=== PATIENT | female | born 1955 | race Caucasian/White ===

== ENCOUNTER 2023-06-09 13:45 | Outpatient (RCR) | payer MEDICARE, OTHER, SELFPAY | END 2023-06-09 23:59 | disposition home or self-care (01) | LOC: ROT 13:45 | PROVIDERS: ATTENDING PHYSICIAN Physical Medicine & Rehabilitation; FAMILY PHYSICIAN Nurse Practitioner | DX: I69.898 Other sequelae of other cerebrovascular disease (principal); R26.2 Difficulty in walking, not elsewhere classified; R53.83 Other fatigue; I69.354 Hemiplegia and hemiparesis following cerebral infarction affecting left non-dominant side | CPT/HCPCS: 97112; 97116; 97530; 97535 ==

== ENCOUNTER 2023-06-23 12:30 | Outpatient (RCR) | payer MEDICARE, OTHER, SELFPAY | END 2023-06-23 23:59 | disposition home or self-care (01) | LOC: ROT 12:30 | PROVIDERS: ATTENDING PHYSICIAN Physical Medicine & Rehabilitation; FAMILY PHYSICIAN Nurse Practitioner | DX: I63.9 Cerebral infarction, unspecified (principal); Z73.6 Limitation of activities due to disability | CPT/HCPCS: 97116; 97530 ==

== ENCOUNTER 2023-07-28 12:59 | Outpatient (RCR) | payer MEDICARE, OTHER, SELFPAY | END 2023-07-28 23:59 | disposition home or self-care (01) | LOC: ROT 12:59 | PROVIDERS: ATTENDING PHYSICIAN Physical Medicine & Rehabilitation; FAMILY PHYSICIAN Nurse Practitioner | DX: I69.354 Hemiplegia and hemiparesis following cerebral infarction affecting left non-dominant side (principal); R53.83 Other fatigue; Z73.6 Limitation of activities due to disability; R26.2 Difficulty in walking, not elsewhere classified | CPT/HCPCS: 97112; 97116 ==

== ENCOUNTER 2023-08-19 12:49 | Outpatient (RCR) | payer MEDICARE, OTHER, SELFPAY | END 2023-08-19 23:59 | disposition home or self-care (01) | LOC: ROT 12:49 | PROVIDERS: ATTENDING PHYSICIAN Physical Medicine & Rehabilitation; FAMILY PHYSICIAN Nurse Practitioner | DX: I69.354 Hemiplegia and hemiparesis following cerebral infarction affecting left non-dominant side (principal); R53.83 Other fatigue; G81.14 Spastic hemiplegia affecting left nondominant side; R26.2 Difficulty in walking, not elsewhere classified; Z73.6 Limitation of activities due to disability; Z85.3 Personal history of malignant neoplasm of breast; Z90.13 Acquired absence of bilateral breasts and nipples | CPT/HCPCS: 97110; 97116; 97530 ==

== ENCOUNTER 2023-09-30 12:37 | Outpatient (RCR) | payer MEDICARE, OTHER, SELFPAY | END 2023-09-30 23:59 | disposition home or self-care (01) | LOC: ROT 12:37 | PROVIDERS: ATTENDING PHYSICIAN Physical Medicine & Rehabilitation; FAMILY PHYSICIAN Nurse Practitioner | DX: I69.354 Hemiplegia and hemiparesis following cerebral infarction affecting left non-dominant side (principal); Z73.6 Limitation of activities due to disability; R26.89 Other abnormalities of gait and mobility; Z85.3 Personal history of malignant neoplasm of breast | CPT/HCPCS: 97110; 97116; 97530 ==

== ENCOUNTER 2023-11-11 13:05 | Outpatient (RCR) | payer MEDICARE, OTHER, SELFPAY | END 2023-11-11 23:59 | disposition home or self-care (01) | LOC: ROT 13:05 | PROVIDERS: ATTENDING PHYSICIAN Physical Medicine & Rehabilitation; FAMILY PHYSICIAN Nurse Practitioner | DX: I69.352 Hemiplegia and hemiparesis following cerebral infarction affecting left dominant side (principal); R53.83 Other fatigue; Z73.6 Limitation of activities due to disability | CPT/HCPCS: 97112; 97116 ==

== ENCOUNTER 2023-11-24 13:07 | Outpatient (RCR) | payer MEDICARE, OTHER, SELFPAY | END 2023-11-24 23:59 | disposition home or self-care (01) | LOC: ROT 13:07 | PROVIDERS: ATTENDING PHYSICIAN Physical Medicine & Rehabilitation; FAMILY PHYSICIAN Nurse Practitioner | DX: I69.354 Hemiplegia and hemiparesis following cerebral infarction affecting left non-dominant side (principal); Z73.6 Limitation of activities due to disability; R53.83 Other fatigue; R26.2 Difficulty in walking, not elsewhere classified; R26.89 Other abnormalities of gait and mobility; Z85.3 Personal history of malignant neoplasm of breast | CPT/HCPCS: 97116; 97530 ==

== ENCOUNTER 2023-12-15 15:29 | Emergency (ER) | payer MEDICARE, OTHER, SELFPAY ==
[2023-12-15 15:35] VITALS: BP 147/95
[2023-12-15 16:06] LABS: % Basophils 0.7 % (0-2); % Eosinophils 1.5 % (0-6); % Immature Granulocytes 0.3 % (0-0.5); % Monocytes 9.5 % (1.7-9.3); Absolute Basophils 0.1 10^3/uL (0-0.2); Absolute Eosinophils 0.1 10^3/uL (0-0.7); Absolute Lymphocytes 3.1 10^3/uL (1.2-3.4); Absolute Monocytes 0.8 10^3/uL (0.1-0.6); Absolute Neutrophils 4.7 10^3/uL (1.4-6.5); Hematocrit 37.6 % (37.0-47.0); Hemoglobin 12.9 g/dL (12.0-16.0); Mean Corp Hgb Conc. 34.3 g/dL (33.0-37.0); Mean Corpuscular Hgb 30.8 pg (27.0-31.0); Mean Corpuscular Volume 89.7 fL (81.0-99.0); Mean Platelet Volume 10.4 fL (7.4-10.4); Nucleated Red Blood Cells % 0 %; Platelet Count 247 10^3/uL (130-400); Red Blood Cell Count 4.19 10^6/uL (4.20-5.40); Red Cell Dist. Width 12.4 % (11.5-14.5); White Blood Cell Count 8.9 10^3/uL (4.8-10.8)
[2023-12-15 16:18] LABS: ALT (SGPT) 28 U/L (0-35); AST (SGOT) 29 U/L (14-36); Albumin 4.4 g/dl (3.5-5.0); Alkaline Phosphatase 71 U/L (38-126); Blood Urea Nitrogen 16 mg/dl (7-17); Calcium 10.1 mg/dl (8.4-10.2); Carbon Dioxide 28 mmol/L (22-30); Chloride 100 mmol/L (98-107); Glucose 86 mg/dl (70-99); Potassium 4.6 mmol/L (3.5-5.1); Sodium 136 mmol/L (135-145); Total Bilirubin 0.3 mg/dl (0.2-1.3); Total Protein 6.9 g/dl (6.3-8.2); eGFR > 60.00
[2023-12-15 16:55] LABS: Urine Albumin Trace (Neg - Trace); Urine Bilirubin Negative (Negative); Urine Character Clear (Clear); Urine Color Yellow; Urine Glucose Negative (Negative); Urine Ketone Negative (Negative); Urine Leukocyte 1+ (Negative); Urine Nitrite Negative (Negative); Urine Occult Blood 2+ (Negative); Urine Urobilinogen Negative (Neg - 1+); Urine pH 6.5 (5.0-9.0)
[2023-12-15 17:46] LABS: Urine Squamous Cell >30 /LPF (Few)
[2023-12-15 17:47] LABS: Urine Bacteria Few (Negative)
[2023-12-15 17:54] VITALS: BP 124/59
--- NOTE | 2023-12-15 17:58 | ED.GENMED ---
History of Present Illness
General
Chief Complaint: Dizziness
Time Seen by Provider: 12/15/23 17:43
History of Present Illness
History of Present Illness:
Patient presents to the emergency department with episodes of dizziness. States they have been ongoing since this weekend. States they only occur when she turns her head certain directions. Complains of some vertigo and some lightheadedness.
States she has a history of vertigo. Denies any new pain. Has baseline left upper and left lower extremity hemiparesis from prior stroke. No new weakness.
Past History
Past History
ED Past Medical History: CVA (with left sided weakness); Negative Asthma, HTN, Hypercholesterolemia or NIDDM
ED Past Surgical History: Cholecystectomy
Social History
Tobacco: Former smoker
Alcohol: None
Personal:
Living: with family
Phy Exam
Physical Exam
Physical Exam:
GENERAL APPEARANCE: NAD, laying in stretcher, comfortable
EYES lids/conjunctiva normal
EARS/NOSE/THROAT Mucous membranes moist, uvula midline without oral pharyngeal erythema, exudate or swelling, leoncio hallpike normal
HEAD/NECK normocephalic atraumatic, neck is supple.
RESPIRATORY respiratory effort normal, speaks in full sentences, no accessory muscle use. Lungs clear to auscultation without rhonchi, wheezes, rales
CARDIAC Regular rate and rhythm, no edema.
ABDOMINAL Soft, ND/NT. No pulsatile masses on exam, rebound tenderness, Alves sign or pain over Mcburney's point.
MUSCLES/EXTREMITIES No abnormal range of motion, no swelling.
SKIN Warm, pink and dry. No rashes
NEUROLOGICAL Speech is clear and appropriate. Normal level of consciousness. CN2-12 intact, no nystagmus, baseline LLE/LUE paralysis with diminished sensation, 5/5 in RLE/RUE with normal sensation, no dysmetria or ataxia
PSYCH Normal mood and affect. Judgement/competence is appropriate
Course
Orders/Labs/Results
Orders:
Orders
12/15/23 15:39
ECG [Electrocardiogram (*1)] Urgent
Reason for Study: Vertigo / Dizzy
EKG- Treatment ONCE
12/15/23 15:52
Complete Blood Count/With Diff Urgent
Comprehensive Metabolic Panel Urgent
12/15/23 16:43
Urinalysis Reflex To Culture Urgent
Date Specimen was Collected: 12/15/23
Time Specimen was Collected: 16:42
Urine Microscopic Reflex Cult Urgent
Urine Culture Urgent
RAYMUNDO Source: U
Specimen Description:
Date Specimen was Collected: 12/15/23
Time Specimen was Collected: 16:42
12/15/23 17:57
0.9% Sodium Chloride 500 ml [Nss] 500 ml IV BOLUS
12/15/23 18:06
Meclizine [Antivert] 12.5 mg PO NOW STA
Abnormal Lab Results
12/15/23 12/15/23
15:52 16:43
RBC 4.19 L 10^6/uL
(4.20-5.40)
Absolute Monos (auto) 0.8 H 10^3/uL
(0.1-0.6)
Monocytes % 9.5 H %
(1.7-9.3)
Ur Occult Blood Reflex 2+ A
(Negative)
Leukocyte Esterase Rfl 1+ A
(Negative)
Urine RBC 3-6 A /HPF
(0-2)
Urine Bacteria (Reflex) Few A
(Negative)
12/15/23 15:52
12/15/23 15:52
Vital Signs
Initial and Last Documented VS:
Initial Vital Signs
Temp Pulse Resp BP Pulse Ox
98.8 F 80 20 147/95 96
12/15/23 15:35 12/15/23 15:35 12/15/23 15:35 12/15/23 15:35 12/15/23 15:35
Last Documented Vital Signs
Temp Pulse Resp BP Pulse Ox
98.8 F 77 14 144/73 97
12/15/23 15:35 12/15/23 19:15 12/15/23 19:15 12/15/23 19:00 12/15/23 18:15
*Critical Care Note
Total Time (30-74mins, 75-104mins- exclusive of procedures): Not Applicable
ED Attending Note
ED Attending Note
ED Attending Note:
Patient with positional vertigo. Improved with meclizine. No new neurologic deficits or symptoms consistent with new CVA. Will refer to ENT for outpatient management. urine noted, contaminated sample, no urinary sxs
-
Portions of this chart may have been created with voice recognition software.� Occasional wrong word or��sound alike� substitutions may have occurred due to the inherent limitations of voice recognition software.
Discharge Plan
Departure
Patient Disposition: Home (Routine Discharge)
Date of Disposition: 12/15/23
Time of Disposition: 19:18
Patient with high blood pressure during this ER visit?: Yes
Discharge Problem:
Dizziness
Instructions: Vertigo (a Type of Dizziness) (DC)
Prescriptions:
New
meclizine 25 mg tablet
25 mg PO DAILY PRN (Reason: dizziness) Qty: 14 0RF
No Action
acetaminophen [Tylenol Extra Strength] 500 MG tablet
500 mg PO TID
levetiracetam 500 MG tablet
500 mg PO BID
atorvastatin 80 MG tablet
80 mg PO QPM
melatonin 3 MG tablet
3 mg PO HS
calcium carbonate [Calcium 600] 600 mg calcium (1,500 mg) Tablet
600 mg PO BID@1200,1900 Qty: 0
baclofen 10 MG tablet
10 mg PO TID
celecoxib 100 MG capsule
100 mg PO BID
dicyclomine 10 MG capsule
10 mg PO DAILY
loratadine 10 MG tablet
10 mg PO QPM
escitalopram oxalate 20 MG tablet
20 mg PO DAILY
cholecalciferol (vitamin D3) 1,000 UNITS tablet
2,000 units PO NOON
clopidogrel [Plavix] 75 mg Tablet
75 mg PO DAILY
lisinopril 10 mg Tablet
10 mg PO DAILY
gabapentin 300 mg Capsule
300 mg PO HS
estradiol [Estrace] 0.01 % (0.1 mg/gram) Cream
1 appful VAGINAL MOTH
fluticasone propionate [Flonase] 50 mcg/actuation [place],Suspension
2 spray INTRANASAL NOON
Visbiome 112.5 billion cell Capsule
1 cap PO DAILY
cranberry extract [Ellura] 200 mg Capsule
200 mg PO QPM
mirabegron [Myrbetriq] 50 mg Tablet Extended Release 24 Hr
50 mg PO HS
nifedipine 30 MG tablet extended release
60 mg PO HS
Referrals:
Leighton Shea MD [Emergency Provider] -
UNKNOWN - PT DOES,NOT KNOW [Family Provider] -
Jamia Reyes MD [Active] - Follow up in 10 days
Interventions
Interventions:
*Risk Screen - Suicide Last Done: 12/15/23 18:06
*General Assessment Last Done: 12/15/23 18:06
*Neglect/Abuse Screening Last Done: 12/15/23 18:06
*ED COVID-19 Vaccine History Last Done: 12/15/23 18:06
ED- Neurological Assessment Last Done: 12/15/23 18:06
ED Swallowing Screen Last Done: 12/15/23 18:15
Discharge Date and Time
Print Language: TURKISH
[2023-12-15 18:00] VITALS: BP 129/63
[2023-12-15 18:04] VITALS: BMI 33.5
[2023-12-15] MEDS: ANTIVERT 12.5 MG PO (18:44)
[2023-12-15 19:00] VITALS: BP 144/73
== END 2023-12-15 19:48 | disposition home or self-care (01) ==
LOC: EMR 15:29
PROVIDERS: EMERGENCY PHYSICIAN Emergency Medicine; FAMILY PHYSICIAN Nurse Practitioner
DX: R42 Dizziness and giddiness (principal); Z86.73 Personal history of transient ischemic attack (TIA), and cerebral infarction without residual deficits; Z87.891 Personal history of nicotine dependence; Z90.49 Acquired absence of other specified parts of digestive tract
CPT/HCPCS: 99283; 80053; 81003; 81015; 85025; 87086; 93005

== ENCOUNTER 2023-12-27 13:55 | Outpatient (RCR) | payer MEDICARE, OTHER, SELFPAY | END 2023-12-27 23:59 | disposition home or self-care (01) | LOC: ROT 13:55 | PROVIDERS: ATTENDING PHYSICIAN Physical Medicine & Rehabilitation; FAMILY PHYSICIAN Nurse Practitioner | DX: I69.354 Hemiplegia and hemiparesis following cerebral infarction affecting left non-dominant side (principal); I69.398 Other sequelae of cerebral infarction; R26.89 Other abnormalities of gait and mobility; R26.2 Difficulty in walking, not elsewhere classified; H81.12 Benign paroxysmal vertigo, left ear; R42 Dizziness and giddiness; R53.83 Other fatigue | CPT/HCPCS: 97112; 97116; 97164 ==

== ENCOUNTER 2024-01-26 12:48 | Outpatient (RCR) | payer MEDICARE, OTHER, SELFPAY | END 2024-01-26 23:59 | disposition home or self-care (01) | LOC: ROT 12:48 | PROVIDERS: ATTENDING PHYSICIAN Physical Medicine & Rehabilitation; FAMILY PHYSICIAN Nurse Practitioner | DX: I69.398 Other sequelae of cerebral infarction (principal); R53.83 Other fatigue; I69.351 Hemiplegia and hemiparesis following cerebral infarction affecting right dominant side; R42 Dizziness and giddiness; R26.2 Difficulty in walking, not elsewhere classified | CPT/HCPCS: 97116; 97530 ==

== ENCOUNTER 2024-03-08 13:02 | Outpatient (RCR) | payer MEDICARE, OTHER, SELFPAY | END 2024-03-08 23:59 | disposition home or self-care (01) | LOC: ROT 13:02 | PROVIDERS: ATTENDING PHYSICIAN Physical Medicine & Rehabilitation; FAMILY PHYSICIAN Nurse Practitioner | DX: I69.354 Hemiplegia and hemiparesis following cerebral infarction affecting left non-dominant side (principal); R53.83 Other fatigue; G81.12 Spastic hemiplegia affecting left dominant side; R26.2 Difficulty in walking, not elsewhere classified; Z73.6 Limitation of activities due to disability; Z85.3 Personal history of malignant neoplasm of breast; Z90.13 Acquired absence of bilateral breasts and nipples | CPT/HCPCS: 97116; 97530 ==

== ENCOUNTER 2024-03-09 14:21 | Emergency (ER) | payer OTHER, MEDICARE, SELFPAY ==
[2024-03-09 14:22] VITALS: BP 145/79
[2024-03-09 14:43] VITALS: BP 106/45
[2024-03-09 15:00] VITALS: BP 107/50
--- NOTE | 2024-03-09 15:22 | ED.GENMED ---
History of Present Illness
General
Chief Complaint: Weakness
Time Seen by Provider: 03/09/24 14:40
History of Present Illness
History of Present Illness:
68-year-old female presents to the emergency department for evaluation of general fatigue. She admits to ingesting a THC gummy Wednesday night that is estimated to be roughly 300 mg of THC. She thought this was an adequate dose that she typically
consumes about 300 mg of CBD and a tincture and does not feel abnormal when taking this. Noted that she felt fatigued and 'high' all day yesterday and the symptoms persisted into today. She denies any confusion, vision changes, chest pain,
shortness of breath, nausea, or vomiting. No other prescription medication changes
Past History
Past History
ED Past Medical History: CVA (with left sided weakness); Negative Asthma, HTN, Hypercholesterolemia or NIDDM
ED Past Surgical History: Cholecystectomy
Social History
Tobacco: Former smoker
Alcohol: None
Personal:
Living: with family
Review of Systems
Review of Systems
Allergies reviewed?: Yes
All Other Systems: ROS reviewed and negative except as documented in HPI and ROS
Phy Exam
Physical Exam
Physical Exam:
GEN: Well appearing, NAD, WDWN
HEENT: Oral mucosa moist, no scleral icterus
Cardiac: Regular rate
Lung: No respiratory distress, no tachypnea
MSK: No gross deformity or injuries
Skin: Good color, no pallor or jaundice, no rashes
Neuro: AO x3, no aphasia or dysarthria. Fully intact strength of the right upper and right lower extremity, there is weakness to the left lower extremity as well as flaccidity of the left upper extremity which is baseline after prior CVA.
Psych: Calm, cooperative
Course
Orders/Labs/Results
Orders:
Orders
03/09/24 15:37
Complete Blood Count/With Diff Urgent
Comprehensive Metabolic Panel Urgent
03/09/24 16:21
Urinalysis Reflex To Culture Urgent
Date Specimen was Collected: 03/09/24
Time Specimen was Collected: 16:18
Urine Microscopic Reflex Cult Urgent
Urine Culture Urgent
RAYMUNDO Source: U
Specimen Description:
Date Specimen was Collected: 03/09/24
Time Specimen was Collected: 16:18
Comment: ADD ON
03/09/24 16:54
Add On - Microbiology Urgent
Tests Added?: urine culture
Abnormal Lab Results
03/09/24 03/09/24
15:37 16:21
RBC 3.89 L 10^6/uL
(4.20-5.40)
Hgb 11.9 L g/dL
(12.0-16.0)
Hct 34.7 L %
(37.0-47.0)
Absolute Monos (auto) 0.8 H 10^3/uL
(0.1-0.6)
Monocytes % 10.2 H %
(1.7-9.3)
BUN 27 H mg/dl
(7-17)
Glucose 107 H mg/dl
(70-99)
Ur Occult Blood Reflex 3+ A
(Negative)
Leukocyte Esterase Rfl Trace A
(Negative)
Urine RBC 30-40 A /HPF
(0-2)
03/09/24 15:37
03/09/24 15:37
Vital Signs
Initial and Last Documented VS:
Initial Vital Signs
Temp Pulse Resp BP Pulse Ox
98.9 F 82 20 145/79 97
03/09/24 14:22 03/09/24 14:22 03/09/24 14:22 03/09/24 14:22 03/09/24 14:22
Last Documented Vital Signs
Temp Pulse Resp BP Pulse Ox
98.9 F 73 12 118/52 95
03/09/24 14:22 03/09/24 16:45 03/09/24 16:45 03/09/24 16:23 03/09/24 16:45
MDM/Problems Addressed
MDM/Problems Addressed:
Patient's labs are unremarkable. She does have microscopic hematuria which seems to be consistent with past urinalysis, this will be sent for culture for completeness however no metabolic derangements are found. She has no new focal neurologic
deficits I do not see an indication for CT of the head. Ultimately I suspect she consumed an excessive amount of THC and is experiencing the lingering effects as a result. Recommend rest and reevaluation in the next 24 to 48 hours.
*Critical Care Note
Total Time (30-74mins, 75-104mins- exclusive of procedures): Not Applicable
ED Attending Note
-
Portions of this chart may have been created with voice recognition software.� Occasional wrong word or��sound alike� substitutions may have occurred due to the inherent limitations of voice recognition software.
Discharge Plan
Departure
Patient Disposition: Home (Routine Discharge)
Date of Disposition: 03/09/24
Time of Disposition: 16:45
Patient with high blood pressure during this ER visit?: No
Discharge Problem:
Cannabis overdose
Instructions: Medical Marijuana
Prescriptions:
No Action
acetaminophen [Tylenol Extra Strength] 500 MG tablet
500 mg PO TID
levetiracetam 500 MG tablet
500 mg PO BID
atorvastatin 80 MG tablet
80 mg PO QPM
melatonin 3 MG tablet
3 mg PO HS
calcium carbonate [Calcium 600] 600 mg calcium (1,500 mg) Tablet
600 mg PO BID@1200,1900 Qty: 0
baclofen 10 MG tablet
10 mg PO TID
celecoxib 100 MG capsule
100 mg PO BID
dicyclomine 10 MG capsule
10 mg PO DAILY
loratadine 10 MG tablet
10 mg PO QPM
escitalopram oxalate 20 MG tablet
20 mg PO DAILY
cholecalciferol (vitamin D3) 1,000 UNITS tablet
2,000 units PO NOON
clopidogrel [Plavix] 75 mg Tablet
75 mg PO DAILY
lisinopril 10 mg Tablet
10 mg PO DAILY
gabapentin 300 mg Capsule
300 mg PO HS
estradiol [Estrace] 0.01 % (0.1 mg/gram) Cream
1 appful VAGINAL MOTH
fluticasone propionate [Flonase] 50 mcg/actuation [place],Suspension
2 spray INTRANASAL NOON
Visbiome 112.5 billion cell Capsule
1 cap PO DAILY
cranberry extract [Ellura] 200 mg Capsule
200 mg PO QPM
mirabegron [Myrbetriq] 50 mg Tablet Extended Release 24 Hr
50 mg PO HS
nifedipine 30 MG tablet extended release
60 mg PO HS
meclizine 25 mg tablet
25 mg PO DAILY PRN (Reason: dizziness) Qty: 14 0RF
Referrals:
Regina Pinon CRNP [Family Provider] -
Interventions
Interventions:
*Risk Screen - Suicide Last Done: 03/09/24 14:22
*General Assessment Last Done: 03/09/24 14:22
*Neglect/Abuse Screening Last Done: 03/09/24 14:22
ED- Fall Risk Assessment Last Done: 03/09/24 16:52
*ED COVID-19 Vaccine History Last Done: 03/09/24 14:38
*Nursing Disposition Last Done: 03/09/24 16:52
ED- Cardiac Assessment Last Done: 03/09/24 14:39
ED- Neurological Assessment Last Done: 03/09/24 14:44
ED- Pulmonary Assessment Last Done: 03/09/24 14:44
Discharge Date and Time
Discharge Date/Time: 03/09/24 17:02
Print Language: [place]
[2024-03-09 15:38] VITALS: BMI 34.8
[2024-03-09 15:51] LABS: % Basophils 0.5 % (0-2); % Eosinophils 1.9 % (0-6); % Immature Granulocytes 0.3 % (0-0.5); % Lymphocytes 33.2 % (20.5-51.1); % Monocytes 10.2 % (1.7-9.3); % Neutrophils 53.9 % (42.2-75.2); Absolute Eosinophils 0.2 10^3/uL (0-0.7); Absolute Lymphocytes 2.6 10^3/uL (1.2-3.4); Absolute Monocytes 0.8 10^3/uL (0.1-0.6); Absolute Neutrophils 4.2 10^3/uL (1.4-6.5); Hematocrit 34.7 % (37.0-47.0); Hemoglobin 11.9 g/dL (12.0-16.0); Mean Corp Hgb Conc. 34.3 g/dL (33.0-37.0); Mean Corpuscular Hgb 30.6 pg (27.0-31.0); Mean Corpuscular Volume 89.2 fL (81.0-99.0); Mean Platelet Volume 9.9 fL (7.4-10.4); Nucleated Red Blood Cells % 0 %; Platelet Count 264 10^3/uL (130-400); Red Blood Cell Count 3.89 10^6/uL (4.20-5.40); Red Cell Dist. Width 12.2 % (11.5-14.5); White Blood Cell Count 7.8 10^3/uL (4.8-10.8)
[2024-03-09 16:03] LABS: ALT (SGPT) 22 U/L (0-35); AST (SGOT) 22 U/L (14-36); Albumin 4.1 g/dl (3.5-5.0); Alkaline Phosphatase 64 U/L (38-126); Blood Urea Nitrogen 27 mg/dl (7-17); Calcium 9.6 mg/dl (8.4-10.2); Carbon Dioxide 28 mmol/L (22-30); Chloride 100 mmol/L (98-107); Estimated Creatinine Clearance 77 ml/min; Glucose 107 mg/dl (70-99); Potassium 4.4 mmol/L (3.5-5.1); Sodium 139 mmol/L (135-145); Total Bilirubin 0.2 mg/dl (0.2-1.3); Total Protein 6.5 g/dl (6.3-8.2); eGFR > 60.00
[2024-03-09 16:23] VITALS: BP 118/52
[2024-03-09 16:35] LABS: Urine Albumin Negative (Neg - Trace); Urine Bilirubin Negative (Negative); Urine Character Clear (Clear); Urine Color Yellow; Urine Glucose Negative (Negative); Urine Ketone Negative (Negative); Urine Leukocyte Trace (Negative); Urine Nitrite Negative (Negative); Urine Occult Blood 3+ (Negative); Urine Specific Gravity 1.015 (<1.030); Urine Urobilinogen Negative (Neg - 1+)
[2024-03-09 16:48] LABS: Urine Red Blood Cell 30-40 /HPF (0-2); Urine Squamous Cell >30 /LPF (Few); Urine White Cell 0-2 /HPF (0-5)
== END 2024-03-09 17:02 | disposition home or self-care (01) ==
LOC: EMR 14:21
PROVIDERS: Physician Assistant; EMERGENCY PHYSICIAN Student in an Organized Health Care Education/Training Program; FAMILY PHYSICIAN Nurse Practitioner
DX: T40.711A Poisoning by cannabis, accidental (unintentional), initial encounter (principal)
CPT/HCPCS: 99283; 80053; 81003; 81015; 85025; 87077; 87086; 87186

== ENCOUNTER 2024-03-29 12:43 | Outpatient (RCR) | payer MEDICARE, OTHER, SELFPAY | END 2024-03-29 23:59 | disposition home or self-care (01) | LOC: ROT 12:43 | PROVIDERS: ATTENDING PHYSICIAN Physical Medicine & Rehabilitation; FAMILY PHYSICIAN Nurse Practitioner | DX: I69.354 Hemiplegia and hemiparesis following cerebral infarction affecting left non-dominant side (principal); R53.83 Other fatigue; G81.12 Spastic hemiplegia affecting left dominant side; R42 Dizziness and giddiness; R26.2 Difficulty in walking, not elsewhere classified; Z73.6 Limitation of activities due to disability; Z85.3 Personal history of malignant neoplasm of breast; Z90.13 Acquired absence of bilateral breasts and nipples | CPT/HCPCS: 97112; 97116 ==

== ENCOUNTER 2024-04-26 14:18 | Outpatient (RCR) | payer MEDICARE, OTHER, SELFPAY | END 2024-04-26 23:59 | disposition home or self-care (01) | LOC: ROT 14:18 | PROVIDERS: ATTENDING PHYSICIAN Physical Medicine & Rehabilitation; FAMILY PHYSICIAN Nurse Practitioner | DX: I69.354 Hemiplegia and hemiparesis following cerebral infarction affecting left non-dominant side (principal); R53.83 Other fatigue; G81.12 Spastic hemiplegia affecting left dominant side; R42 Dizziness and giddiness; R26.2 Difficulty in walking, not elsewhere classified; Z85.3 Personal history of malignant neoplasm of breast | CPT/HCPCS: 97112; 97530 ==

== ENCOUNTER 2024-05-31 10:38 | Outpatient (RCR) | payer MEDICARE, OTHER, SELFPAY | END 2024-05-31 23:59 | disposition home or self-care (01) | LOC: ROT 10:38 | PROVIDERS: ATTENDING PHYSICIAN Physical Medicine & Rehabilitation; FAMILY PHYSICIAN Nurse Practitioner | DX: I69.354 Hemiplegia and hemiparesis following cerebral infarction affecting left non-dominant side (principal); R53.83 Other fatigue; G81.12 Spastic hemiplegia affecting left dominant side; R42 Dizziness and giddiness; R26.2 Difficulty in walking, not elsewhere classified; Z73.6 Limitation of activities due to disability; Z85.3 Personal history of malignant neoplasm of breast; M54.2 Cervicalgia; M25.512 Pain in left shoulder | CPT/HCPCS: 97116; 97530 ==

== ENCOUNTER 2024-06-21 13:14 | Outpatient (RCR) | payer MEDICARE, OTHER, SELFPAY | END 2024-06-21 23:59 | disposition home or self-care (01) | LOC: ROT 13:14 | PROVIDERS: ATTENDING PHYSICIAN Physical Medicine & Rehabilitation; FAMILY PHYSICIAN Nurse Practitioner | DX: I69.354 Hemiplegia and hemiparesis following cerebral infarction affecting left non-dominant side (principal); R53.83 Other fatigue; G81.12 Spastic hemiplegia affecting left dominant side; R42 Dizziness and giddiness; Z73.6 Limitation of activities due to disability; M54.2 Cervicalgia; M25.512 Pain in left shoulder; R26.2 Difficulty in walking, not elsewhere classified; Z85.3 Personal history of malignant neoplasm of breast | CPT/HCPCS: 97112; 97116 ==

== ENCOUNTER 2024-07-19 12:44 | Outpatient (RCR) | payer MEDICARE, OTHER, SELFPAY | END 2024-07-19 23:59 | disposition home or self-care (01) | LOC: ROT 12:44 | PROVIDERS: ATTENDING PHYSICIAN Physical Medicine & Rehabilitation; FAMILY PHYSICIAN Nurse Practitioner | DX: I69.354 Hemiplegia and hemiparesis following cerebral infarction affecting left non-dominant side (principal); R53.83 Other fatigue; G81.12 Spastic hemiplegia affecting left dominant side; R42 Dizziness and giddiness; R26.2 Difficulty in walking, not elsewhere classified; Z73.6 Limitation of activities due to disability; M54.2 Cervicalgia; M25.512 Pain in left shoulder; Z85.3 Personal history of malignant neoplasm of breast | CPT/HCPCS: 97116 ==

== ENCOUNTER 2024-10-11 12:55 | Outpatient (RCR) | payer MEDICARE, OTHER, SELFPAY | END 2024-10-11 23:59 | disposition home or self-care (01) | LOC: ROT 12:55 | PROVIDERS: ATTENDING PHYSICIAN Physical Medicine & Rehabilitation; FAMILY PHYSICIAN Nurse Practitioner | DX: I69.354 Hemiplegia and hemiparesis following cerebral infarction affecting left non-dominant side (principal); R53.83 Other fatigue; G81.12 Spastic hemiplegia affecting left dominant side; R42 Dizziness and giddiness; R26.2 Difficulty in walking, not elsewhere classified; Z73.6 Limitation of activities due to disability; M54.2 Cervicalgia; M25.512 Pain in left shoulder; Z85.3 Personal history of malignant neoplasm of breast | CPT/HCPCS: 97110; 97112; 97116; 97530 ==

== ENCOUNTER 2024-11-08 13:00 | Outpatient (RCR) | payer MEDICARE, OTHER, SELFPAY | END 2024-11-11 13:44 | disposition home or self-care (01) | LOC: ROT 13:00 | PROVIDERS: ATTENDING PHYSICIAN Physical Medicine & Rehabilitation; FAMILY PHYSICIAN Nurse Practitioner | DX: I69.354 Hemiplegia and hemiparesis following cerebral infarction affecting left non-dominant side (principal); R53.83 Other fatigue; G81.12 Spastic hemiplegia affecting left dominant side; R42 Dizziness and giddiness; R26.2 Difficulty in walking, not elsewhere classified; Z73.6 Limitation of activities due to disability; M54.2 Cervicalgia; M25.512 Pain in left shoulder; Z85.3 Personal history of malignant neoplasm of breast | CPT/HCPCS: 97110; 97116 ==

== ENCOUNTER 2024-12-03 00:11 | Observation (INO) | payer MEDICARE, OTHER, SELFPAY ==
[2024-12-02 11:30] VITALS: BMI 32.3
[2024-12-02 12:00] VITALS: BP 126/63
--- NOTE | 2024-12-02 12:20 | ED.GENMED ---
History of Present Illness
<John Francis MD - Last Filed: 12/03/24 11:45>
General
Chief Complaint: Head Injury
Source: patient
Exam Limitations: none
Time Seen by Provider: 12/02/24 11:38
Nursing documentation reviewed up to this point in time: agreed with
History of Present Illness
History of Present Illness:
Patient with history of CVA with residual left-sided deficit, presents to ED, accompanied by her caregiver, after she lost balance, when transitioning from her wheelchair to commode, hitting her forehead against guard rail. Denies loss of
consciousness. When caregiver went to assess the patient, patient had brief episode of dizziness and nausea, which now has resolved completely. Denies headache. Denies neck pain. Denies any other injuries. Patient does take Plavix chronically.
Past History
<John Francis MD - Last Filed: 12/03/24 11:45>
Past History
ED Past Medical History: CVA (with left sided weakness); Negative Asthma, HTN, Hypercholesterolemia or NIDDM
ED Past Surgical History: Cholecystectomy
Social History
Tobacco: Former smoker
Alcohol: None
Personal:
Living: with family
Review of Systems
<John Francis MD - Last Filed: 12/03/24 11:45>
Review of Systems
Allergies reviewed?: Yes
All Other Systems: ROS reviewed and negative except as documented in HPI and ROS
Constitutional: Reports no symptoms
Respiratory: Reports no symptoms
Cardiac: Reports no symptoms
ABD/GI: Reports nausea; Denies vomiting
Musculoskeletal: Reports no symptoms
Skin: Reports no symptoms
Neurological: Reports dizzy; Denies headache
Phy Exam
<John Francis MD - Last Filed: 12/03/24 11:45>
Physical Exam
Physical Exam:
Physical Exam
General: no apparent distress, not acutely ill. afebrile
Head: nc/at. eomi
Neck: supple. no midline tenderness. normal ROM
Lungs: no acute respiratory distress. clear bilaterally. chest wall nontender to palpation
Abdomen: normal bowel sounds. not tender.
Neuro: alert and oriented x 3. LUE/LLE weakness, chronic. normal speech
Skin: no rash
Psychiatric: well kept. interactive and cooperative
Extremities: LE b/l, nonpitting edema. no calf tenderness.
Course
<John Francis MD - Last Filed: 12/03/24 11:45>
Orders/Labs/Results
Orders:
Orders
12/02/24 11:55
CT Head W/o Iv Contrast Urgent
Comment:
Reason For Exam: trauma to forehead
12/02/24 14:06
US Legs, Left [US Periph Venous LOWER Ext LT] Urgent
Comment:
Reason For Exam: LLE swelling
12/02/24 18:43
Ankle, left 3 view CR [CR Ankle - Left Min 3 Views ] Urgent
Comment:
Reason For Exam: pain
12/02/24 18:44
Foot, Left 3 View [CR Foot - Left Min 3 Views] Urgent
Comment:
Reason For Exam: pain
12/02/24 21:17
CBC/With Diff [Complete Blood Count/With Diff] Urgent
12/02/24 21:44
Femur, Left 2 View [CR Femur - Left Min 2 Vw] Urgent
Comment:
Reason For Exam: fall
Pelvis, 1 or 2 Views CR [CR Pelvis - 1 Or 2 Views ] Urgent
Comment:
Reason For Exam: fall
12/02/24 21:48
Comprehensive Metabolic Panel Urgent
12/02/24 23:00
Flush (0.9% Sodium Chloride) [Flush (Nss)] See Dose Instructions IV PER PROTOCOL
12/02/24 23:46
Oxycodone [Roxicodone] 5 mg PO NOW STA
12/02/24 23:47
Admit/Transfer Patient As Directed
Co-Sign Provider:
Level of Care: Observation services
Assign to:: Telemetry
Physician / Group: Francheska, Jignesh
Diagnosis: CVA/TIA, ambulatory dysfunction
Reason for Telemetry: CVA/TIA
Date to Stop Telemetry: 12/05/24
Time to Stop Telemetry: 11:00
12/02/24 23:48
PRN Pain Medication Management As Directed
May give lesser potent ordered pain med per pt: Yes
preference::
Protocol:: Medication orders for pain may be administered in a
manner that supports deferring to patient preference
when the pt is:
- Requesting an ordered lesser potent pain medication.
Least to most potent pain medications are defined
as: acetaminophen < NSAID < tramadol < opioids
(morphine, oxycodone, hydromorphone).
- Requesting a lesser dose of the same medication IF
ORDERED.
- Requesting a less intrusive route of administration
if both routes are prescribed by the provider (PO <
IV).
12/02/24 23:50
Code Status As Directed
Resuscitation Status: Full Code
12/03/24 00:42
Case Management Consult ONCE
Case Management Consult: Discharge Planning
Comment: stroke/tia
DIETARY IP CONSULT Routine
Reason for Consult: stroke/TIA
Managing Cognitive Engineer Urgent
MR Brain Without Contrast Routine
Comment: has stimulator in right hip, unsure if MRI compati
Reason For Exam: stroke/TIA
Recent pill cam endoscopy?: No
Activity As Directed
Activity Level: As Tolerated
NIH Stroke Scale As Directed
Directions: Per protocol
Comment: every shift and with any change in condition or mental status
Neurological Checks As Directed
Frequency: q4h
Additional Instructions:: q4h x 24h upon admission to the floor, then qshift & with any change in condition
and mental status
Patient Education As Directed
Type: Stroke education packet
Comment: provide to patient and family
Pneumatic Compression Sleeves As Directed
Type: Knee high
Swallow Screening CVA/TIA ONLY As Directed
Comment: NPO until swallowing screening completed
If patient FAILS swallow screening:: NPO, Speech Therapy consult, Aspiration Precautions
If patient PASSES swallow screening, diet:: Cholesterol Lowering
Above diet order entered?: Yes- passed screening
Vital Signs As Directed
Frequency: Per unit guidelines
Ot Eval And Treat Routine
Pt Eval And Treat Routine
Activity Level: As Tolerated
Speech Therapy Eval & Treat Routine
DX Deep Vein Thrombosis Video Routine
12/03/24 07:06
Type+Screen IN AM
Cardiovascular Evaluation IN AM
Erythrocyte Sed Rate IN AM
Glycohemoglobin (HgbA1c) IN AM
PTT IN AM
Prothrombin Time IN AM
Troponin I IN AM
12/03/24 08:00
Acetaminophen [Tylenol] 500 mg PO TID
Baclofen [Lioresal] 10 mg PO TID
Celecoxib [Celebrex] 100 mg PO BID
Clopidogrel Bisulfate [Plavix] 75 mg PO DAILY
Dicyclomine [Bentyl] 10 mg PO DAILY
Escitalopram Oxalate [Lexapro] 20 mg PO DAILY
Lactobac/Bifidobac [Visbiome] 1 cap PO DAILY
Levetiracetam [Keppra] 500 mg PO BID
Lisinopril [Zestril] 10 mg PO DAILY
Methenamine Hippurate [Hiprex] 1 gram PO BID
12/03/24 12:00
Calcium Carbonate [Oscal Kiran 500] 500 mg PO BID@1200,1900
Cholecalciferol (Vitamin D3) [VITAMIN D3 (cholecalciferol)] 25 mcg PO NOON
fluticasone propionate 2 spray NASAL NOON
12/03/24 18:00
Atorvastatin [Lipitor] 80 mg PO QPM
Loratadine [Claritin] 10 mg PO QPM
cranberry extract [Ellura] 200 mg PO QPM
12/03/24 22:00
Gabapentin [Neurontin] 300 mg PO HS
Melatonin 3 mg PO HS
Mirabegron Extended Release [Myrbetriq Extended Release] 50 mg PO HS
NIFEdipine EXTENDED RELEASE [Procardia Xl (Extended Release)] 60 mg PO HS
12/05/24 11:00
DC Protocol for Telemetry ONCE
Abnormal Lab Results
12/02/24 12/02/24
21:17 21:48
WBC 11.2 H 10^3/uL
(4.8-10.8)
Absolute Neuts (auto) 7.0 H 10^3/uL
(1.4-6.5)
Absolute Monos (auto) 0.8 H 10^3/uL
(0.1-0.6)
BUN 19 H mg/dl
(7-17)
Glucose 100 H mg/dl
(70-99)
12/02/24 21:17
12/02/24 21:48
Vital Signs
Initial and Last Documented VS:
Initial Vital Signs
Temp Pulse Resp Pulse Ox
98.0 F 81 15 98
12/02/24 11:30 12/02/24 11:30 12/02/24 11:30 12/02/24 11:30
Last Documented Vital Signs
Temp Pulse Resp BP Pulse Ox
97.8 F 72 16 125/62 96
12/03/24 07:00 12/03/24 07:00 12/03/24 07:00 12/03/24 07:00 12/03/24 07:00
<Anoop Parker DO - Last Filed: 12/02/24 21:46>
Orders/Labs/Results
Orders:
Orders
12/02/24 11:55
CT Head W/o Iv Contrast Urgent
Comment:
Reason For Exam: trauma to forehead
12/02/24 14:06
US Legs, Left [US Periph Venous LOWER Ext LT] Urgent
Comment:
Reason For Exam: LLE swelling
12/02/24 18:43
Ankle, left 3 view CR [CR Ankle - Left Min 3 Views ] Urgent
Comment:
Reason For Exam: pain
12/02/24 18:44
Foot, Left 3 View [CR Foot - Left Min 3 Views] Urgent
Comment:
Reason For Exam: pain
12/02/24 21:17
CBC/With Diff [Complete Blood Count/With Diff] Urgent
12/02/24 21:44
Femur, Left 2 View [CR Femur - Left Min 2 Vw] Urgent
Comment:
Reason For Exam: fall
Pelvis, 1 or 2 Views CR [CR Pelvis - 1 Or 2 Views ] Urgent
Comment:
Reason For Exam: fall
12/02/24 21:48
Comprehensive Metabolic Panel Urgent
12/02/24 23:00
Flush (0.9% Sodium Chloride) [Flush (Nss)] See Dose Instructions IV PER PROTOCOL
12/02/24 23:46
Oxycodone [Roxicodone] 5 mg PO NOW STA
12/02/24 23:47
Admit/Transfer Patient As Directed
Co-Sign Provider:
Level of Care: Observation services
Assign to:: Telemetry
Physician / Group: Jignesh Pritchard
Diagnosis: CVA/TIA, ambulatory dysfunction
Reason for Telemetry: CVA/TIA
Date to Stop Telemetry: 12/05/24
Time to Stop Telemetry: 11:00
12/02/24 23:48
PRN Pain Medication Management As Directed
May give lesser potent ordered pain med per pt: Yes
preference::
Protocol:: Medication orders for pain may be administered in a
manner that supports deferring to patient preference
when the pt is:
- Requesting an ordered lesser potent pain medication.
Least to most potent pain medications are defined
as: acetaminophen < NSAID < tramadol < opioids
(morphine, oxycodone, hydromorphone).
- Requesting a lesser dose of the same medication IF
ORDERED.
- Requesting a less intrusive route of administration
if both routes are prescribed by the provider (PO <
IV).
12/02/24 23:50
Code Status As Directed
Resuscitation Status: Full Code
12/03/24 00:42
Case Management Consult ONCE
Case Management Consult: Discharge Planning
Comment: stroke/tia
DIETARY IP CONSULT Routine
Reason for Consult: stroke/TIA
Managing Cognitive Engineer Urgent
MR Brain Without Contrast Routine
Comment: has stimulator in right hip, unsure if MRI compati
Reason For Exam: stroke/TIA
Recent pill cam endoscopy?: No
Activity As Directed
Activity Level: As Tolerated
NIH Stroke Scale As Directed
Directions: Per protocol
Comment: every shift and with any change in condition or mental status
Neurological Checks As Directed
Frequency: q4h
Additional Instructions:: q4h x 24h upon admission to the floor, then qshift & with any change in condition
and mental status
Patient Education As Directed
Type: Stroke education packet
Comment: provide to patient and family
Pneumatic Compression Sleeves As Directed
Type: Knee high
Swallow Screening CVA/TIA ONLY As Directed
Comment: NPO until swallowing screening completed
If patient FAILS swallow screening:: NPO, Speech Therapy consult, Aspiration Precautions
If patient PASSES swallow screening, diet:: Cholesterol Lowering
Above diet order entered?: Yes- passed screening
Vital Signs As Directed
Frequency: Per unit guidelines
Ot Eval And Treat Routine
Pt Eval And Treat Routine
Activity Level: As Tolerated
Speech Therapy Eval & Treat Routine
DX Deep Vein Thrombosis Video Routine
12/03/24 07:06
Type+Screen IN AM
Cardiovascular Evaluation IN AM
Erythrocyte Sed Rate IN AM
Glycohemoglobin (HgbA1c) IN AM
PTT IN AM
Prothrombin Time IN AM
Troponin I IN AM
12/03/24 08:00
Acetaminophen [Tylenol] 500 mg PO TID
Baclofen [Lioresal] 10 mg PO TID
Celecoxib [Celebrex] 100 mg PO BID
Clopidogrel Bisulfate [Plavix] 75 mg PO DAILY
Dicyclomine [Bentyl] 10 mg PO DAILY
Escitalopram Oxalate [Lexapro] 20 mg PO DAILY
Lactobac/Bifidobac [Visbiome] 1 cap PO DAILY
Levetiracetam [Keppra] 500 mg PO BID
Lisinopril [Zestril] 10 mg PO DAILY
Methenamine Hippurate [Hiprex] 1 gram PO BID
12/03/24 12:00
Calcium Carbonate [Oscal Kiran 500] 500 mg PO BID@1200,1900
Cholecalciferol (Vitamin D3) [VITAMIN D3 (cholecalciferol)] 25 mcg PO NOON
fluticasone propionate 2 spray NASAL NOON
12/03/24 18:00
Atorvastatin [Lipitor] 80 mg PO QPM
Loratadine [Claritin] 10 mg PO QPM
cranberry extract [Ellura] 200 mg PO QPM
12/03/24 22:00
Gabapentin [Neurontin] 300 mg PO HS
Melatonin 3 mg PO HS
Mirabegron Extended Release [Myrbetriq Extended Release] 50 mg PO HS
NIFEdipine EXTENDED RELEASE [Procardia Xl (Extended Release)] 60 mg PO HS
12/05/24 11:00
DC Protocol for Telemetry ONCE
Abnormal Lab Results
12/02/24 12/02/24
21:17 21:48
WBC 11.2 H 10^3/uL
(4.8-10.8)
Absolute Neuts (auto) 7.0 H 10^3/uL
(1.4-6.5)
Absolute Monos (auto) 0.8 H 10^3/uL
(0.1-0.6)
BUN 19 H mg/dl
(7-17)
Glucose 100 H mg/dl
(70-99)
12/02/24 21:17
12/02/24 21:48
Vital Signs
Initial and Last Documented VS:
Initial Vital Signs
Temp Pulse Resp Pulse Ox
98.0 F 81 15 98
12/02/24 11:30 12/02/24 11:30 12/02/24 11:30 12/02/24 11:30
Last Documented Vital Signs
Temp Pulse Resp BP Pulse Ox
97.8 F 72 16 125/62 96
12/03/24 07:00 12/03/24 07:00 12/03/24 07:00 12/03/24 07:00 12/03/24 07:00
<John Francis MD - Last Filed: 12/03/24 11:45>
MDM/Problems Addressed
MDM/Problems Addressed:
CT head report reviewed and discussed with patient. Patient otherwise remains afebrile, hemodynamically stable, and neurologically intact during observation. W concern for ambulatory dysfunction with leg swelling along with sedantary life style,
will obtain LE US to evaluate for potential DVT
<John Francis MD - Last Filed: 12/03/24 11:45>
*Pulse Oximetry
SaO2: 98
Oxygen Mode of Delivery: Room air
Patient hypoxic: no
*Critical Care Note
Total Time (30-74mins, 75-104mins- exclusive of procedures): Not Applicable
<Anoop Parker DO - Last Filed: 12/02/24 21:46>
Update Note
Update Note:
Patient observed over several hours. Patient attempted to bear weight and transfer several times but unable to. On my assessment patient complained a little bit of some ankle pain imaging of the foot and ankle are unremarkable but the patient is
still unable to transfer her weight. She lives alone even though she lives next-door to her daughter. They do need her to be able to transfer her weight. Will obtain imaging of the pelvis and femur despite the fact that she does not have any pain
there. Given the fact that she is unable to transfer and unable to be at home by herself, admit may need case management physical therapy. Question whether she could have a minor left ankle sprain limiting this.
ED Attending Note
<John Francis MD - Last Filed: 12/03/24 11:45>
-
Portions of this chart may have been created with voice recognition software.� Occasional wrong word or��sound alike� substitutions may have occurred due to the inherent limitations of voice recognition software.
Discharge Plan
Departure
Patient Disposition: Admit
Date of Disposition: 12/02/24
Time of Disposition: 21:46
Admit to: Med/Surg
Presentation/result/management discussed w/ accepting /DO: Hospitalist
Patient with high blood pressure during this ER visit?: Yes
Condition: Good
Discharge Problem:
Head injury, Ambulatory dysfunction, Fall
Interventions
Interventions:
*Risk Screen - Suicide Last Done: 12/02/24 11:30
*General Assessment Last Done: 12/02/24 11:30
*Neglect/Abuse Screening Last Done: 12/02/24 11:30
*ED- Fall Risk Assessment Last Done: 12/02/24 11:30
*ED COVID-19 Vaccine History Last Done: 12/03/24 00:02
*Nursing Disposition Last Done: 12/03/24 00:49
ED- Neurological Assessment Last Done: 12/02/24 11:36
ED-Skin Assessment Last Done: 12/02/24 11:36
Discharge Date and Time
Discharge Date/Time: 12/03/24 00:50
[2024-12-02 17:43] VITALS: BP 114/51
[2024-12-02 17:44] VITALS: BP 114/51
[2024-12-02 21:02] VITALS: BP 119/50
[2024-12-02 21:26] VITALS: BP 119/50
[2024-12-02 21:26] LABS: % Basophils 0.4 % (0-2); % Eosinophils 0.6 % (0-6); % Immature Granulocytes 0.3 % (0-0.5); % Monocytes 7.2 % (1.7-9.3); % Neutrophils 62.5 % (42.2-75.2); Absolute Basophils 0.1 10^3/uL (0-0.2); Absolute Eosinophils 0.1 10^3/uL (0-0.7); Absolute Lymphocytes 3.2 10^3/uL (1.2-3.4); Absolute Monocytes 0.8 10^3/uL (0.1-0.6); Hematocrit 42.7 % (37.0-47.0); Hemoglobin 14.5 g/dL (12.0-16.0); Mean Corpuscular Hgb 30.9 pg (27.0-31.0); Mean Platelet Volume 9.7 fL (7.4-10.4); Nucleated Red Blood Cells % 0 %; Platelet Count 246 10^3/uL (130-400); Red Blood Cell Count 4.69 10^6/uL (4.20-5.40); Red Cell Dist. Width 12.4 % (11.5-14.5); White Blood Cell Count 11.2 10^3/uL (4.8-10.8)
[2024-12-02 22:12] LABS: ALT (SGPT) 22 U/L (0-35); AST (SGOT) 22 U/L (14-36); Albumin 4.5 g/dl (3.5-5.0); Alkaline Phosphatase 57 U/L (38-126); Blood Urea Nitrogen 19 mg/dl (7-17); Calcium 9.6 mg/dl (8.4-10.2); Carbon Dioxide 29 mmol/L (22-30); Chloride 105 mmol/L (98-107); Estimated Creatinine Clearance 78 ml/min; Glucose 100 mg/dl (70-99); Potassium 4.1 mmol/L (3.5-5.1); Sodium 141 mmol/L (135-145); Total Bilirubin 0.4 mg/dl (0.2-1.3); Total Protein 7.1 g/dl (6.3-8.2); eGFR > 60.00
--- NOTE | 2024-12-02 22:36 | HPS.HSE ---
Family Physician
-
Family Physician: ISIAH Rome
Chief Complaint
-
fall
History of Present Illness
Patient is a 68-year-old female with past medical history significant for hypertension, hypercholesterolemia, depression, overactive bladder, Hx seizure and Hx CVA who presented to [facility] ED for evaluation s/p fall. Patient reports she lives at home
alone with caregiver 5 hours a day. She is able to transfer her self to and from wheelchair generally without issue. Patient today transferred from bed to chair and then fell forward hitting forehead when transferring from chair to commode. Patient
is unsure why this event happened. She denies any dizziness, headache, vision changes, weakness, numbness or palpitations.
Medical History
Past Medical History
Past Medical History: Reports Other
Additional Past Medical History:
hypertension
hypercholesterolemia
depression
overactive bladder
Hx seizure
Hx CVA
Past Surgical History: Reports Other
Additional Past Surgical History:
cholecystectomy
craniotomy
cranioplasty
bilateral cataract extraction
bilateral mastectomy
Social History
Tobacco: Non-smoker
Alcohol: None
Drug: None
Living: Alone
Employment: Disabled
Family History
Family History: Not pertinent
Allergies / Home Medications
Allergies reflects when Allergies were last updated in [email or web address].
Home Medications with original date entered in [email or web address]
Allergy/Medication List:
Allergies
Allergy/AdvReac Type Severity Reaction Status Date / Time
amoxicillin (From Augmentin) Allergy Unknown Verified 03/09/24 14:27
clavulanic acid (From Allergy Unknown Verified 03/09/24 14:27
Augmentin)
minocycline Allergy Unknown Verified 03/09/24 14:27
Home Medications
acetaminophen 500 mg tablet (Tylenol Extra Strength) 500 mg PO TID 04/10/18
levetiracetam 500 mg tablet 500 mg PO BID 04/10/18
atorvastatin 80 mg tablet 80 mg PO QPM 02/22/19
baclofen 10 mg tablet 10 mg PO TID 02/22/19
calcium carbonate (Calcium 600) 600 mg PO BID@1200,1900 ##0 02/22/19
celecoxib 100 mg capsule 100 mg PO BID 02/22/19
cholecalciferol (vitamin D3) 25 mcg (1,000 unit) tablet 2,000 units PO NOON 02/22/19
dicyclomine 10 mg capsule 10 mg PO DAILY 02/22/19
escitalopram oxalate 20 mg tablet 20 mg PO DAILY 02/22/19
loratadine 10 mg tablet 10 mg PO QPM 02/22/19
melatonin 3 mg tablet 3 mg PO HS 02/22/19
Lactobac no.2-Bifidobac no.1-S. thermo 112.5 billion cell capsule (Visbiome) 1 cap PO DAILY 12/15/23
clopidogrel 75 mg tablet (Plavix) 75 mg PO DAILY 12/15/23
cranberry extract 200 mg capsule (Ellura) 200 mg PO QPM 12/15/23
estradiol 0.01% (0.1 mg/gram) vaginal cream (Estrace) 1 appful vaginal MOTH 12/15/23
fluticasone propionate 50 mcg/actuation nasal spray,suspension 2 spray intranasal NOON 12/15/23
gabapentin 300 mg capsule 300 mg PO HS 12/15/23
lisinopril 10 mg tablet 10 mg PO DAILY 12/15/23
mirabegron 50 mg tablet,extended release 24 hr (Myrbetriq) 50 mg PO HS 12/15/23
nifedipine 30 mg tablet,extended release 60 mg PO HS 12/15/23
methenamine hippurate 1 gram tablet 1 g PO BID 12/02/24
Review of Systems
-
History Source: Patient
Constitutional: Reports Other (overall pain all over s/p fall )
Neurological: Reports Weakness
Physical Exam
Vital Signs
Vital Signs
Temp Pulse Resp BP Pulse Ox
98.0 F 82 15 119/50 97
12/02/24 11:30 12/02/24 21:26 12/02/24 21:26 12/02/24 21:26 12/02/24 17:43
Physical Exam
General: Well Developed, Well Nourished, No Apparent Distress, Comfortable, Conversant and Obese
HEENT: NormoCephalic, Moist mucous membranes, Atraumatic, [place] Conjunctivae, Nose Appears Normal and Ears Appear Normal
Respiratory: Clear and Non Labored Respirations
Cardiac: S1/S2 and Regular Rhythm
Breast: Deferred by me
GI: Soft, Non Tender, Non Distended and Normal Bowel Sounds; No Organomegaly
Rectal: Deferred by Provider
Genito-urinary: Deferred by me
Musculoskeletal: No Clubbing and No Cyanosis
Skin: Warm and IV/Catheter Site
Neuro: Awake, Alert, AO x 3, Nonfocal/grossly intact and Other (residual left-sided weakness s/p previous CVA )
Psych: Calm
Laboratory Results
-
12/02/24 21:17
12/02/24 21:48
Laboratory Results
Total Bilirubin 0.4 mg/dl (0.2-1.3) 12/02/24 21:48
AST 22 U/L (14-36) 12/02/24 21:48
ALT 22 U/L (0-35) 12/02/24 21:48
Alkaline Phosphatase 57 U/L (38-126) 12/02/24 21:48
Data Reviewed
-
Diagnostic Radiology: Report Reviewed by me (Left ankle)
CT Scan: Report Reviewed by me (Head: 1. No CT evidence for acute intracranial hemorrhage. 2. Large 10 cm region of encephalomalacia in the right middle cerebral artery territory (right frontal lobe, right parietal lobe, right temporal lobe,
right insular cortex, and right basal ganglia) which appears unchanged and is consiste)
Ultrasound: Report Reviewed by me (LLE periph Venous US: No sonographic evidence for left lower extremity deep venous thrombosis.)
Lab Data: Labs Reviewed by me
Impression/Plan
-
IMPRESSION/PLAN:
#fall 2/2 CVA/TIA vs. mechanical from weakness
#ambulatory dysfunction
Head CT: 1. No CT evidence for acute intracranial hemorrhage.
2. Large 10 cm region of encephalomalacia in the right middle cerebral artery territory (right frontal lobe, right parietal lobe, right temporal lobe, right insular cortex, and right basal ganglia)
which appears unchanged and is consistent with a large chronic infarction.
3. Previous right sided craniectomy and cranioplasty which appears unchanged.
[facility] perip Venous US: No sonographic evidence for left lower extremity deep venous thrombosis.
Left foot/ankle x-ray: 1. No radiographic evidence for acute fracture in the left foot or ankle.
2. Diffuse bone demineralization.
3. Moderate diffuse soft tissue swelling and subcutaneous edema.
- Admit to telemetry
- MRI in morning
- Consult Neurology if MRI positive
- consult PT/OT
- consult case management
#hypertension
- continue lisinopril and nifedipine
#hypercholesterolemia
- continue atorvastatin
#depression
- continue escitalopram
#overactive bladder
- continue methenamine and mirabegron
#Hx seizure
patient daughter reported seizure with previous CVA, none since then
- continue levetiracetam
#Hx CVA
required craniotomy due to cerebral edema s/p large ischemic stroke (2018)
- continue baclofen, celecoxib, clopidogrel, dicyclomine, gabapentin
Code status: full code
DVT prophylaxis: SCDs
--- NOTE | 2024-12-02 22:50 | W.PN.UPDATE ---
Update Note
Progress Note Update
This note serves as an addendum to the H&P by tube drawing supervisor ADRY Brianna Hoskins
This note serves as an addendum to the H&P by tube drawing supervisor ADRY Brianna Hoskins
HPI
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
- accompanied by her caregiver, after she lost balance, when transitioning from her wheelchair to commode, hitting her forehead against guard rail.
- Denies loss of consciousness.
- When caregiver went to assess the patient, patient had brief episode of dizziness and nausea, which now has resolved completely.
- Denies headache. Denies neck pain. Denies any other injuries. Patient does take Plavix chronically.
Vital Signs
Temp Pulse Resp BP Pulse Ox
98.0 F 82 15 119/50 97
12/02/24 11:30 12/02/24 21:26 12/02/24 21:26 12/02/24 21:26 12/02/24 17:43
PE
Gen: no apparent distress
HEENT: anicteric
Neck: supple
Lungs: CTA
Cor:RRR S1 S2
Abdomen: soft benign
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
Psych: well kept. interactive and cooperative
Data
Relevant labs
03/09/24 12/02/24 12/02/24
15:37 21:17 21:48
WBC 11.2 H
Hgb 11.9 L 14.5
Potassium 4.1
Creatinine 0.7
eGFR > 60.00
HCT:
1. No CT evidence for acute intracranial hemorrhage.
2. Large 10 cm region of encephalomalacia in the right middle cerebral artery territory (right frontal lobe, right parietal lobe, right temporal lobe, right insular cortex, and right basal ganglia) which appears unchanged and is consistent with a
large chronic infarction.
3. Previous right sided craniectomy and cranioplasty which appears unchanged.
Last hospitalist admission:
US Lt Cristopher
No sonographic evidence for left lower extremity deep venous thrombosis.
Lt foot XR
1. No radiographic evidence for acute fracture in the left foot or ankle.
2. Diffuse bone demineralization.
3. Moderate diffuse soft tissue swelling and subcutaneous edema.
Pelvis XR and femur XR pending report
NO PRIOR hospitalist admission:
ASSESSMENT & PLAN
Pending Rx reconciliation
Fall out from WC and strike fore head
Rapidly resolved brief episode of dizziness and nausea s/p hit forehead
Some ankle pain s/p fall - unremarkable imaging of the foot and ankle but concern for minor left ankle sprain
- acute change of baseline function such as unable to TF and bear weight after observed over several hours at ER
- Lives alone though she lives next-door to her daughter.
- pending imaging of the pelvis and femur (of note :she does not have any pain there)
- PT to evaluate physical therapy. Question whether she could have a minor left ankle sprain limiting this.
- CRM consult
- daughter PA and requesting brain MRI due to new interval drop in ability to TF herself
Known HX
Chr ambulatory dysfunction use [place] for distance and use quad cane for short distance
HX decompression Craniotomy due to severe cerebral edema s/p large ischemic CVA in 2018
HX large Rt sided CVA with residual Lt sided weakness on Plavix and Statin
HZ Sz disorder post CVA and for further Sz prophylaxis Levitra 50 mg BID and Gabapentin
Benign HTN on Lisinopril and Nifedipine
Depression on Lexapro
DVT Px: SQH
Code: Full
Obs MS
[2024-12-02 23:24] VITALS: BP 105/46
[2024-12-02] MEDS: ROXICODONE 5 MG PO (23:53)
[2024-12-03] VITALS (8 sets, daily range): BP systolic 105–135; BP diastolic 46–68; PULSE 74–78; O2SAT 97–98; BMI 32.3
--- NOTE | 2024-12-03 01:00 | PTCARENOTE ---
Pt. admitted from E.D., AAO x 3, vs stable, pulled over from stretcher to bed, NIH 10 due to previous CVA weakness, decreased sensation to left side, and flaccid left side, NSR on monitor, call blair within reach.
[2024-12-03 07:27] LABS: INR 0.89; PT 12.4 Sec (11.4-14.6)
[2024-12-03 07:28] LABS: APTT 28.8 Sec (23.4-35.0)
[2024-12-03 07:51] LABS: HDL Cholesterol 49 mg/dl; LDL Cholesterol, Calculated 33 mg/dl; Total Cholesterol 109 mg/dl (50-199); Triglyceride 136 mg/dl (10-149); Very Low Density Lipoprotein 27 mg/dl (0-30)
[2024-12-03 07:54] LABS: Troponin I < 0.012 ng/ml
[2024-12-03 08:14] LABS: Erythrocyte Sed Rate 12 mm/hour (0-20)
[2024-12-03] MEDS: BENTYL 10 MG PO (08:18)
[2024-12-03] MEDS: CELEBREX 100 MG PO ×2 (08:18→22:06)
[2024-12-03] MEDS: PLAVIX 75 MG PO (08:18)
[2024-12-03] MEDS: LEXAPRO 20 MG PO (08:18)
[2024-12-03] MEDS: KEPPRA 500 MG PO ×2 (08:18→22:06)
[2024-12-03] MEDS: TYLENOL 500 MG PO ×3 (08:18→22:53)
[2024-12-03] MEDS: ZESTRIL 10 MG PO (08:19)
[2024-12-03] MEDS: VISBIOME 1 CAP PO (08:19)
[2024-12-03] MEDS: HIPREX 1 GRAM PO ×2 (08:19→22:06)
[2024-12-03] MEDS: LIORESAL 10 MG PO ×3 (08:19→22:54)
--- NOTE | 2024-12-03 10:41 | PTOTSP ---
Dysphagia Evaluation
Oral/pharyngeal swallowing suspected to be grossly within functional limits for consistencies assessed.
Patient with mild dysarthria (suspect spastic, strained vocal quality, decreased ROM of articulators) but 100% intelligible. This is baseline per patient.
Recommend:
1. IDDSI 7 Regular, Thin liquids
2. Assist with positioning patient upright to 90 degrees and with meal tray set up
3. Medications: as best tolerated
4. Oral care 3x daily
5. Speech/language/cognitive evaluation pending results of MRI of Brain
[2024-12-03 11:21] LABS: Urine Albumin Negative (Neg - Trace); Urine Bilirubin Negative (Negative); Urine Character Clear (Clear); Urine Color Yellow; Urine Glucose Negative (Negative); Urine Ketone Negative (Negative); Urine Leukocyte 2+ (Negative); Urine Nitrite Negative (Negative); Urine Occult Blood 3+ (Negative); Urine Urobilinogen Negative (Neg - 1+)
--- NOTE | 2024-12-03 11:44 | W.PN.HOSP.TC ---
Today's Communication/Plan
-
Monitor vital signs see plan
PT/OT
Lovenox for DVT prophylaxis
MRI brain
Continue Plavix
Called daughter, left voicemail
Assessment / Plan
Assessment / Plan
General: Well Developed, Well Nourished, No Apparent Distress, Comfortable, Conversant and Obese
HEENT: NormoCephalic, Moist mucous membranes, Atraumatic, [place] Conjunctivae
Respiratory: Clear and Non Labored Respirations
Cardiac: S1/S2 and Regular Rhythm
GI: Soft, Non Tender, Non Distended and Normal Bowel Sounds
Neuro: Awake, Alert, AO x 3, Nonfocal/grossly intact and Other (residual left-sided weakness s/p previous CVA )
Psych: Calm
fall 2/2 CVA/TIA vs. mechanical from weakness
#ambulatory dysfunction
Head CT: 1. No CT evidence for acute intracranial hemorrhage.
2. Large 10 cm region of encephalomalacia in the right middle cerebral artery territory (right frontal lobe, right parietal lobe, right temporal lobe, right insular cortex, and right basal ganglia)
which appears unchanged and is consistent with a large chronic infarction.
3. Previous right sided craniectomy and cranioplasty which appears unchanged.
LLE periph Venous US: No sonographic evidence for left lower extremity deep venous thrombosis.
Left foot/ankle x-ray: 1. No radiographic evidence for acute fracture in the left foot or ankle.
2. Diffuse bone demineralization.
3. Moderate diffuse soft tissue swelling and subcutaneous edema.
- MRI pending
- Consult Neurology if MRI positive
- consult PT/OT
- consult case management
Check UA, previous history of UTI
Pelvic x-ray, femur x-ray without any fracture
#hypertension
- continue lisinopril and nifedipine
#hypercholesterolemia
- continue atorvastatin
Constipation
Start laxative
#depression
- continue escitalopram
#overactive bladder
- continue methenamine and mirabegron
#Hx seizure
patient daughter reported seizure with previous CVA, none since then
- continue levetiracetam
#Hx CVA
required craniotomy due to cerebral edema s/p large ischemic stroke (2018)
- continue baclofen, celecoxib, clopidogrel, dicyclomine, gabapentin
Code status: full code
DVT prophylaxis: SCDs,lovenox
Anticipated Discharge: Within 24 hours
Subjective/Interval History
-
Date of Service: December 03, 2024
denies nausea
Objective Data
-
Labs:
Laboratory Results
12/03/24
07:06
PT 12.4
INR 0.89
APTT 28.8
Vital Signs:
Vital Signs
Temp Pulse Resp BP Pulse Ox
97.8 F 72 16 125/62 96
12/03/24 07:00 12/03/24 07:00 12/03/24 07:00 12/03/24 07:00 12/03/24 07:00
[2024-12-03 11:53] LABS: Urine Squamous Cell >30 /LPF (Few)
[2024-12-03 11:55] LABS: Urine Amorphous Seen
[2024-12-03 11:58] LABS: Urine Bacteria Many (Negative)
[2024-12-03] MEDS: MIRALAX 17 GRAMS PO (12:31)
[2024-12-03] MEDS: COLACE 100 MG PO (12:31)
[2024-12-03] MEDS: OSCAL CAL 500 500 MG PO ×2 (12:31→19:00)
[2024-12-03] MEDS: VITAMIN D3 (cholecalciferol) 25 MCG PO (12:31)
[2024-12-03 12:33] LABS: Glycohemoglobin (HgbA1c) 5.4 % (4.0-5.6)
[2024-12-03] MEDS: LOVENOX 40 MG SC (17:14)
[2024-12-03] MEDS: CLARITIN 10 MG PO (17:14)
[2024-12-03] MEDS: ROXICODONE 5 MG PO (17:14)
[2024-12-03] MEDS: LIPITOR 80 MG PO (17:14)
[2024-12-03] MEDS: PROCARDIA XL (EXTENDED RELEASE) 60 MG PO (22:53)
[2024-12-03] MEDS: NEURONTIN 300 MG PO (22:53)
[2024-12-03] MEDS: MYRBETRIQ EXTENDED RELEASE 50 MG PO (22:53)
[2024-12-03] MEDS: MELATONIN 3 MG PO (22:54)
--- NOTE | 2024-12-04 00:30 | PTCARENOTE ---
Pt reports moderate abdominal pain and feeling constipated; pt cannot remember when her last BM was. Around 2200 she was able to produce a small brown hard BM but nothing since. DENIS Bocanegra notified and ordered 1x dulcolax suppository.
Pt rang around 0100 and requested a bedpan. Pt urinated and produced a large soft brown BM, reporting that she 'feels better now'. RN let pt know that the suppository was now verified by pharmacy and she could still have it if she wanted. Pt
requested to still take suppository 'just in case'. Pt received supp by this RN, will monitor for further constipation.
[2024-12-04] MEDS: DULCOLAX 10 MG RECTAL (01:14)
[2024-12-04 03:00] VITALS: BP 104/57
--- NOTE | 2024-12-04 03:30 | PTCARENOTE ---
Pt had two moderate soft formed brown BM's after receiving suppository.
[2024-12-04 07:57] VITALS: BP 130/56
[2024-12-04 08:00] LABS: % Basophils 0.4 % (0-2); % Eosinophils 0.2 % (0-6); % Immature Granulocytes 0.2 % (0-0.5); % Lymphocytes 28.8 % (20.5-51.1); % Monocytes 7.9 % (1.7-9.3); % Neutrophils 62.5 % (42.2-75.2); Absolute Lymphocytes 2.7 10^3/uL (1.2-3.4); Absolute Monocytes 0.7 10^3/uL (0.1-0.6); Absolute Neutrophils 5.8 10^3/uL (1.4-6.5); Hematocrit 37.9 % (37.0-47.0); Hemoglobin 12.8 g/dL (12.0-16.0); Mean Corp Hgb Conc. 33.8 g/dL (33.0-37.0); Mean Corpuscular Hgb 30.7 pg (27.0-31.0); Mean Corpuscular Volume 90.9 fL (81.0-99.0); Mean Platelet Volume 10.2 fL (7.4-10.4); Nucleated Red Blood Cells % 0 %; Platelet Count 217 10^3/uL (130-400); Red Blood Cell Count 4.17 10^6/uL (4.20-5.40); White Blood Cell Count 9.3 10^3/uL (4.8-10.8)
[2024-12-04 08:39] LABS: Blood Urea Nitrogen 16 mg/dl (7-17); Calcium 9.6 mg/dl (8.4-10.2); Carbon Dioxide 27 mmol/L (22-30); Chloride 104 mmol/L (98-107); Estimated Creatinine Clearance 77 ml/min; Glucose 90 mg/dl (70-99); Sodium 138 mmol/L (135-145); eGFR > 60.00
[2024-12-04] MEDS: VISBIOME 1 CAP PO (09:19)
[2024-12-04] MEDS: CELEBREX 100 MG PO ×2 (09:19→20:25)
[2024-12-04] MEDS: LEXAPRO 20 MG PO (09:20)
[2024-12-04] MEDS: TYLENOL 500 MG PO ×3 (09:20→22:43)
[2024-12-04] MEDS: HIPREX 1 GRAM PO ×2 (09:20→20:24)
[2024-12-04] MEDS: LIORESAL 10 MG PO ×3 (09:21→22:42)
[2024-12-04] MEDS: PLAVIX 75 MG PO (09:21)
[2024-12-04] MEDS: BENTYL 10 MG PO (09:21)
[2024-12-04] MEDS: ZESTRIL 10 MG PO (09:22)
[2024-12-04] MEDS: KEPPRA 500 MG PO ×2 (09:22→20:24)
[2024-12-04] MEDS: MIRALAX 17 GRAMS PO (09:23)
[2024-12-04 11:21] VITALS: BP 128/53
--- NOTE | 2024-12-04 12:07 | W.PN.HOSP.TC ---
Today's Communication/Plan
-
Monitor vitals
See plan
MRI pending
PT recommending SNF
Discussed with daughter over the phone
Continue to BladderScan as needed and monitor for retention
Follow-up final urine culture
Assessment / Plan
Assessment / Plan
General: Well Developed, Well Nourished, No Apparent Distress, Comfortable, Conversant and Obese
HEENT: NormoCephalic, Moist mucous membranes, Atraumatic, [place] Conjunctivae
Respiratory: Clear and Non Labored Respirations
Cardiac: S1/S2 and Regular Rhythm
GI: Soft, Non Tender, Non Distended and Normal Bowel Sounds
Neuro: Awake, Alert, AO x 3, Nonfocal/grossly intact and Other (residual left-sided weakness s/p previous CVA )
Psych: Calm
fall 2/2 CVA/TIA vs. mechanical from weakness
#ambulatory dysfunction
Head CT: 1. No CT evidence for acute intracranial hemorrhage.
2. Large 10 cm region of encephalomalacia in the right middle cerebral artery territory (right frontal lobe, right parietal lobe, right temporal lobe, right insular cortex, and right basal ganglia)
which appears unchanged and is consistent with a large chronic infarction.
3. Previous right sided craniectomy and cranioplasty which appears unchanged.
LLE periph Venous US: No sonographic evidence for left lower extremity deep venous thrombosis.
Left foot/ankle x-ray: 1. No radiographic evidence for acute fracture in the left foot or ankle.
2. Diffuse bone demineralization.
3. Moderate diffuse soft tissue swelling and subcutaneous edema.
- MRI pending
- Consult Neurology if MRI positive
- consult PT/OT, recommended SNF. Patient was able to transfer by herself to wheelchair and now she cannot. Discussed with daughter and patient as well, agreeable for SNF if needed.
- consult case management
UA noted, appears that sample. Follow urine culture, observe off antibiotics for now. previous history of UTI
Pelvic x-ray, femur x-ray without any fracture
#hypertension
- continue lisinopril and nifedipine
#hypercholesterolemia
- continue atorvastatin
Constipation
Improving after suppository
Laxatives
Urinary retention
Status post straight cath 12/03
Now improving after constipation resolved
#depression
- continue escitalopram
#overactive bladder
- continue methenamine and mirabegron
#Hx seizure
patient daughter reported seizure with previous CVA, none since then
- continue levetiracetam
#Hx CVA
required craniotomy due to cerebral edema s/p large ischemic stroke (2018)
- continue baclofen, celecoxib, clopidogrel, dicyclomine, gabapentin
Does have spinal stimulator that she follows up with pain management outpatient. Daughter has all the records if needed by MRI
hx of linq
Code status: full code
DVT prophylaxis: SCDs,lovenox
Anticipated Discharge: 24 - 48 hours
Subjective/Interval History
-
Date of Service: December 04, 2024
Denies nausea
Objective Data
-
Labs:
Laboratory Results
12/04/24
07:23
WBC 9.3
Hgb 12.8
Hct 37.9
Plt Count 217
Sodium 138
Potassium 4.0
Chloride 104
Carbon Dioxide 27
BUN 16
Creatinine 0.7
Glucose 90
Calcium 9.6
Vital Signs:
Vital Signs
Temp Pulse Resp BP Pulse Ox
98.2 F 81 16 128/53 95
12/04/24 11:21 12/04/24 11:21 12/04/24 11:21 12/04/24 11:21 12/04/24 11:21
I&O
12/03/24 12/04/24 12/05/24
06:59 06:59 06:59
Intake Total 1440 / 1440 180 / 180
Output Total 700 / 700
Balance 740 / 740 180 / 180
[2024-12-04] MEDS: OSCAL CAL 500 500 MG PO ×2 (13:39→20:24)
[2024-12-04] MEDS: VITAMIN D3 (cholecalciferol) 25 MCG PO (13:40)
[2024-12-04 15:16] VITALS: BP 129/56
--- NOTE | 2024-12-04 16:38 | CM ---
search manager reviewed patient's chart and met with patient, patient was admitted with CVA/TIA, ambulatory Dysfunction, MRI is pending. Patient was admitted under OBS, ENRIQUEZ letter provided to patient and signed at 4:30pm, patient states she lives
alone in a one story home with no steps to enter, patient uses a cane with ambulation, patient also has a w/c, patient has caregivers from 10am to 3pm in home. Per physical therapy plan is for rehab however depending on results from MRI patient may
qualify for acute rehab, needs follow up.
PCP: Dr. Cleve Mancilla
Pharmacy: [facility] in [place].
Plan; Await results of MRI, and follow up from PT.
[2024-12-04] MEDS: CLARITIN 10 MG PO (17:00)
[2024-12-04] MEDS: LOVENOX 40 MG SC (17:00)
[2024-12-04] MEDS: LIPITOR 80 MG PO (17:00)
[2024-12-04 19:55] VITALS: BP 121/59
[2024-12-04] MEDS: MYRBETRIQ EXTENDED RELEASE 50 MG PO (22:41)
[2024-12-04] MEDS: NEURONTIN 300 MG PO (22:41)
[2024-12-04] MEDS: MELATONIN 3 MG PO (22:42)
[2024-12-04] MEDS: PROCARDIA XL (EXTENDED RELEASE) 60 MG PO (22:51)
[2024-12-04 23:17] VITALS: BP 127/69
[2024-12-05 03:37] VITALS: BP 119/76
[2024-12-05 07:15] VITALS: BP 141/66
[2024-12-05] MEDS: KEPPRA 500 MG PO ×2 (07:40→20:54)
[2024-12-05] MEDS: TYLENOL 500 MG PO ×3 (07:40→22:03)
[2024-12-05] MEDS: CELEBREX 100 MG PO ×2 (07:40→20:54)
[2024-12-05] MEDS: ZESTRIL 10 MG PO (07:40)
[2024-12-05] MEDS: LIORESAL 10 MG PO ×3 (07:40→21:59)
[2024-12-05] MEDS: MIRALAX PO (07:40)
[2024-12-05] MEDS: HIPREX 1 GRAM PO ×2 (07:41→20:54)
[2024-12-05] MEDS: VISBIOME 1 CAP PO (07:41)
[2024-12-05] MEDS: BENTYL 10 MG PO (07:42)
[2024-12-05] MEDS: LEXAPRO 20 MG PO (07:42)
[2024-12-05] MEDS: PLAVIX 75 MG PO (07:42)
[2024-12-05 07:55] LABS: % Basophils 0.5 % (0-2); % Eosinophils 1.6 % (0-6); % Immature Granulocytes 0.2 % (0-0.5); % Lymphocytes 37.3 % (20.5-51.1); % Monocytes 7.2 % (1.7-9.3); % Neutrophils 53.2 % (42.2-75.2); Absolute Eosinophils 0.1 10^3/uL (0-0.7); Absolute Lymphocytes 2.4 10^3/uL (1.2-3.4); Absolute Monocytes 0.5 10^3/uL (0.1-0.6); Absolute Neutrophils 3.4 10^3/uL (1.4-6.5); Hematocrit 42.1 % (37.0-47.0); Hemoglobin 13.9 g/dL (12.0-16.0); Mean Corpuscular Hgb 30.3 pg (27.0-31.0); Mean Corpuscular Volume 91.9 fL (81.0-99.0); Mean Platelet Volume 10.6 fL (7.4-10.4); Nucleated Red Blood Cells % 0 %; Platelet Count 236 10^3/uL (130-400); Red Blood Cell Count 4.58 10^6/uL (4.20-5.40); Red Cell Dist. Width 12.3 % (11.5-14.5); White Blood Cell Count 6.4 10^3/uL (4.8-10.8)
[2024-12-05 08:46] LABS: Blood Urea Nitrogen 22 mg/dl (7-17); Carbon Dioxide 30 mmol/L (22-30); Chloride 102 mmol/L (98-107); Estimated Creatinine Clearance 77 ml/min; Glucose 86 mg/dl (70-99); Potassium 4.1 mmol/L (3.5-5.1); Sodium 139 mmol/L (135-145); eGFR > 60.00
[2024-12-05] MEDS: OSCAL CAL 500 500 MG PO ×2 (11:34→16:55)
[2024-12-05] MEDS: VITAMIN D3 (cholecalciferol) 25 MCG PO (11:34)
[2024-12-05 11:46] VITALS: BP 124/65; O2SAT 98
[2024-12-05 11:51] VITALS: BP 124/65; O2SAT 98
--- NOTE | 2024-12-05 12:11 | CM ---
Addendum entered by Tena Machado 12/05/24 15:44:
Call from Debby Ceja/[facility] [phone]
Requesting more clinicals- MRI and therapy notes sent
Original Note:
CM reviewed pt with PT- acute rehab recs
Call with dtr who is requesting referral to [facility] as pt has hx there
PMR consult requested and referral sent via [facility]
Pt remains OBS and without SNF qualifying stay at this time
Bedside update to pt
Discharge Disposition- acute rehab
--- NOTE | 2024-12-05 13:58 | W.PN.HOSP.TC ---
Today's Communication/Plan
-
PMR Consult.
Assessment / Plan
Assessment / Plan
68-year-old female with a fall. Patient lives at home alone with a caregiver 5 hours a day she is able to transfer herself to and from the wheelchair normally.
Head CT-no evidence of acute intracranial hemorrhage. Large 10 cm region of encephalomalacia in the right MCA territory which appears unchanged consistent with a large chronic infarction. Previous right-sided craniotomy and cranioplasty appears
unchanged.
Left lower extremity venous Doppler-no DVT
Left foot/ankle x-ray no left foot or ankle fracture. Diffuse bone demineralization. Moderate diffuse soft tissue swelling and subcutaneous edema
X-ray of the pelvis 12/02/2024-cortical margins of the osseous pelvic ring appears intact without interruption of fracture. Symphysis is congruent. SI and hip joints unremarkable. Sacrum is obscured by bowel gas and fecal residue. Neurostimulator
device noted.
Femur x-ray 12/02/2024-no fracture
MRI of the brain-no acute intracranial abnormality. Stable postoperative changes in the right sided craniotomy/cranioplasty with underlying encephalomalacia. Small focus of diffusion hyperintense signal within the right parietal lobe underlying
the metallic hardware which is likely artifactual in nature.
CVS: S1-S2 normal
Chest: CTA B/L
Abdomen: Soft, NT / Bowel sounds present
Extremities: No edema, normal pulses
MANAGER RAIL: left sided weakness, foot drop
# Fall
mechanical
Ambulatory dysfunction normally able to do ADLs on her own
Sees outpatient PT once in 3 weeks
Started on Wegovy 3 weeks ago-does loss in muscle mass have to do anything with this.
MRI neg for acute
PT OT recommending acute rehab
PMR Consulted
Check chest x-ray rule out infection
# History of prior CVA-large ischemic stroke 2017
Continue baclofen, Celebrex, Plavix, Gabapentin for symptom management resulting from this
# Constipation improving after suppository
# Urinary retention status post right cath 12/01/2024. Now recovering after constipation treated.
# Hypertension-continue Lisinopril/Nifedipine
# Hyperlipidemia-continue Statin
# Depression-continue Lexapro
# History of seizures likely secondary to previous CVA-continue Keppra
# DVT prophylaxis-Lovenox
# Full code
D/W RN
D/W Case management
D/W Daughter and updated
Part of this note was created using voice recognition system. Occasional wrong word or��sound alike� substitutions may have inadvertently occurred due to the inherent limitations of voice recognition software. If noted kindly bring it to my
attention for correction.
Anticipated Discharge: Within 24 hours
Subjective/Interval History
-
Date of Service: December 05, 2024
Objective Data
-
Labs:
Laboratory Results
12/05/24
06:53
WBC 6.4
Hgb 13.9
Hct 42.1
Plt Count 236
Sodium 139
Potassium 4.1
Chloride 102
Carbon Dioxide 30
BUN 22 H
Creatinine 0.7
Glucose 86
Calcium 10.0
Vital Signs:
Vital Signs
Temp Pulse Resp BP Pulse Ox
98.2 F 83 20 141/66 97
12/05/24 07:15 12/05/24 07:15 12/05/24 07:15 12/05/24 07:15 12/05/24 07:40
I&O
12/04/24 12/05/24 12/06/24
06:59 06:59 06:59
Intake Total 1440 / 1440 900 / 900
Output Total 700 / 700
Balance 740 / 740 900 / 900
[2024-12-05 15:25] VITALS: BP 122/51
[2024-12-05] MEDS: CLARITIN 10 MG PO (16:54)
[2024-12-05] MEDS: LIPITOR 80 MG PO (16:54)
[2024-12-05] MEDS: LOVENOX 40 MG SC (16:55)
[2024-12-05] MEDS: MYRBETRIQ EXTENDED RELEASE 50 MG PO (21:59)
[2024-12-05] MEDS: NEURONTIN 300 MG PO (21:59)
[2024-12-05] MEDS: MELATONIN 3 MG PO (21:59)
[2024-12-05] MEDS: PROCARDIA XL (EXTENDED RELEASE) 60 MG PO (22:03)
[2024-12-05 23:21] VITALS: BP 121/55
[2024-12-06 07:20] VITALS: BP 136/16
[2024-12-06] MEDS: LEXAPRO 20 MG PO (07:23)
[2024-12-06] MEDS: PLAVIX 75 MG PO (07:23)
[2024-12-06] MEDS: LIORESAL 10 MG PO ×3 (07:23→22:24)
[2024-12-06] MEDS: KEPPRA 500 MG PO ×2 (07:23→20:22)
[2024-12-06] MEDS: VISBIOME 1 CAP PO (07:23)
[2024-12-06] MEDS: CELEBREX 100 MG PO ×2 (07:23→20:22)
[2024-12-06] MEDS: BENTYL 10 MG PO (07:23)
[2024-12-06] MEDS: HIPREX 1 GRAM PO ×2 (07:23→20:22)
[2024-12-06] MEDS: TYLENOL 500 MG PO ×3 (07:23→22:25)
[2024-12-06] MEDS: MIRALAX PO (07:25)
[2024-12-06] MEDS: ZESTRIL 10 MG PO (07:26)
[2024-12-06 11:26] VITALS: BP 141/88
[2024-12-06] MEDS: OSCAL CAL 500 500 MG PO ×2 (12:10→17:00)
[2024-12-06] MEDS: VITAMIN D3 (cholecalciferol) 25 MCG PO (12:10)
--- NOTE | 2024-12-06 12:53 | CON.MD ---
Consultation - Medical
-
Chief Complaint:�Fall
�
History of Present Illness:�68-year-old female with PMH (as below) presented to [facility] on 12/02/2024 after a fall transferring from the chair to the commode falling forward and hitting her forehead. CT of the head with no evidence of
acute intracranial hemorrhage. Large 10 cm region of encephalomalacia in the right MCA territory which appears unchanged and consistent with large chronic infarction. Previous right-sided craniectomy and cranioplasty which appears unchanged. Left
lower extremity Doppler with no evidence for DVT. Left foot and ankle x-ray with no evidence of acute fracture in the left foot or ankle. MRI of the brain 12/01/2024 with no acute intracranial abnormality. Chest x-ray 12/05 with no acute
radiographic abnormality in the chest.
Of note patient started Wegovy approximately a month ago. Has been having more trouble with her transfers. Does not recall any dizziness, shortness of breath, chest pain, palpitations or feeling as if she was going to pass out before the fall. has
been having some generalized fatigue. Normally she is able to walk around the house and use her wheelchair as necessary to be independent with mobility.
�
Past Medical History:�hypertension, hypercholesterolemia, depression, overactive bladder, seizure, CVA right MCA 2018
Procedure History:�Cholecystectomy, craniotomy, cranioplasty, bilateral cataract extraction, bilateral mastectomy
Family History:�None pertinent
�
Social History:�
Functional Level Premorbidly:�Able to transfer herself in and out of wheelchair without issue, has a caregiver from 10�3 daily to assist with ADLs showers and IADLs. Primarily does a stand pivot transfer with quad cane and left lower extremity
brace. Is able to toilet herself without the aid.
Functional Level Currently:�Supervision bed mobility, min to mod assist transfers. Unable to ambulate. Mod assist lower extremity self-care, set up for grooming, min assist for bed mobility. Suggested for acute rehabilitation by PT and OT to get
back to her prior baseline.
�
Tobacco:�Denies�
Alcohol:�Denies�
Drug use:�Denies�
�
Lives with:�Home alone with caregiver 5 hours a day
24-hour assistance available:�No
Number of floors:�1
# steps to enter:�0
Driving:�No
Occupation:�On disability
�
�
Allergies:�
Allergy/AdvReac Type Severity Reaction Status Date / Time
amoxicillin (From Augmentin) Allergy Unknown Verified 03/09/24 14:27
clavulanic acid (From Allergy Unknown Verified 03/09/24 14:27
Augmentin)
minocycline Allergy Unknown Verified 03/09/24 14:27
�
Review of Systems:�
Constitutional: (x) abNormal _fatigue
Eye: (x) Normal _
Ear/Nose/Throat: (x) Normal _
Respiratory: (x) Normal _
Cardiovascular: (x) Normal _
Gastrointestinal: (x) Normal _
Genitourinary: (x) Normal _
Musculoskeletal: (x) abNormal _left foot pain with no fracture on x-ray, getting better. Chronic left shoulder pain since stroke
Integumentary: (x) Normal _
Neurologic: (x) abNormal _chronic left hemiparesis from stroke, having more difficulty with transfers recently.
Psychiatric: (x) Normal _
Endocrine: (x) Normal _
Hematologic/Lymphatic: (x) Normal _
Allergic/Immunologic: (x) Normal _
�
Medications:�
Active Current Visit Medication List
Category Date Time Status
Acetaminophen [Tylenol] Med 12/03/24 08:00 Active
500 mg PO TID
Atorvastatin [Lipitor] Med 12/03/24 18:00 Active
80 mg PO QPM
Baclofen [Lioresal] Med 12/03/24 08:00 Active
10 mg PO TID
Calcium Carbonate [Oscal Kiran 500] Med 12/03/24 12:00 Active
500 mg PO BID@1200,1900
Celecoxib [Celebrex] Med 12/03/24 08:00 Active
100 mg PO BID
Cholecalciferol (Vitamin D3) [VITAMIN D3 ( Med 12/03/24 12:00 Active
cholecalciferol)]
25 mcg PO NOON
Clopidogrel Bisulfate [Plavix] Med 12/03/24 08:00 Active
75 mg PO DAILY
Dicyclomine [Bentyl] Med 12/03/24 08:00 Active
10 mg PO DAILY
Enoxaparin Sodium [Lovenox] Med 12/03/24 18:00 Active
40 mg SC QPM
Escitalopram Oxalate [Lexapro] Med 12/03/24 08:00 Active
20 mg PO DAILY
Flush (0.9% Sodium Chloride) [Flush (Nss)] Med 12/02/24 23:00 Active
See Dose Instructions IV PER PROTOCOL
Gabapentin [Neurontin] Med 12/03/24 22:00 Active
300 mg PO HS
Lactobac/Bifidobac [Visbiome] Med 12/03/24 08:00 Active
1 cap PO DAILY
Levetiracetam [Keppra] Med 12/03/24 08:00 Active
500 mg PO BID
Lisinopril [Zestril] Med 12/03/24 08:00 Active
10 mg PO DAILY
Loratadine [Claritin] Med 12/03/24 18:00 Active
10 mg PO QPM
Melatonin Med 12/03/24 22:00 Active
3 mg PO HS
Methenamine Hippurate [Hiprex] Med 12/03/24 08:00 Active
1 gram PO BID
Mirabegron Extended Release [Myrbetriq Extended Release Med 12/03/24 22:00 Active
]
50 mg PO HS
NIFEdipine EXTENDED RELEASE [Procardia Xl (Extended Med 12/03/24 22:00 Active
Release)]
60 mg PO HS
Oxycodone [Roxicodone] Med 12/03/24 11:44 Active
5 mg PO Q6HPRN PRN
Polyethylene Glycol Powder [Miralax] Med 12/03/24 12:00 Active
17 grams PO DAILY
Vitals:�
Temp Pulse Resp BP Pulse Ox
98.1 F 85 16 141/88 98
12/06/24 11:26 12/06/24 11:26 12/06/24 11:26 12/06/24 11:26 12/06/24 11:26
Height 5 ft 2 in
Actual Weight 80.087 kg
Body Mass Index (BMI) 32.3
�
Physical Exam:�
General Appearance/Observation: Well-developed, well-nourished female in no apparent distress.�
Pain/Comfort Assessment: Denies�
Mood/Affect: Appropriate�
�
Integumentary/Operative Site:�No skin lesions noted during course of exam
�� Pressure Ulcer Evaluation: absent over heels.�
�
Eyes: Conjunctiva/Lids: normal��� Pupils: pupils equal round and reactive to light
Ears/Nose/Throat: oral mucosa moist, throat clear.������������ Lips/Teeth/Gums: normal
Neck: Has increased muscle tone in the neck and shoulder.
Cardiovascular: Heart: regular, no murmur�
Pulses: dorsalis pedis 2+ bilaterally�
Respiratory: Respiratory Effort/Chest Expansion: normal������ Auscultation: Clear to auscultation bilaterally
Gastrointestinal: abdomen not tender, no distension, normal abdominal bowel sounds
Genitourinary: No Martin�
Extremities:�Edema: Mild left upper extremity and pedal edema. �Cyanosis: None�Trophic�changes: None
�
Neurology Exam:
Orientation: Alert, Oriented to self, Time, Place�
Memory: Intact for recent medical concerns
Repetition: Intact
Comprehension: Intact
Two step command: Intact
Cranial Nerves:
�� CNII:�Pupillary light reflex: Intact���decreased left visual field
�� CN III, IV, : Extraocular muscles: Intact�
�� CN V:�Facial Sensation�at�Forehead: Intact,�Maxilla: Intact,�Mandible: Intact
�� CN VII:�Facial movement: Left facial weakness
�� CN VIII:�Hearing: Decreased hearing on the left
�� CN IX/X:�Speech & swallow: Normal,�Position of Uvula: Midline
�� CN XI:�Shoulder shrug: Decreased on the left
�� CN XII:�Tongue protrusion: Midline
Sensory:
�� Light touch: Intact in bilateral upper and right lower extremities, impaired left lower extremity
Reflexes:
�� Babinski: Not tested
�� Clonus: Sustained clonus left wrist extension
�� Cherrie: Positive on left, negative on right
Cerebellar: Dysmetria/Ataxia: Left too weak to test
Musculoskeletal:Motor: (Manual muscle scale 0-5)�
Muscle SA EF WE EE FF FA HF KE DF EHL PF
Right� 4 5 5 5 5 5 4 5 5 5
Left 1 1 0 1 0 0 2 2+ 1 1
�
Tone: Increased left upper and lower extremity
Range of Motion: Left shoulder limited to approximately 45 degrees secondary to stiffness and pain
�
Lab Results
Laboratory Data
12/05/24 06:53
12/05/24 06:53
PT 12.4 Sec (11.4-14.6) 12/03/24 07:06
INR 0.89 12/03/24 07:06
APTT 28.8 Sec (23.4-35.0) 12/03/24 07:06
Total Bilirubin 0.4 mg/dl (0.2-1.3) 12/02/24 21:48
AST 22 U/L (14-36) 12/02/24 21:48
ALT 22 U/L (0-35) 12/02/24 21:48
Alkaline Phosphatase 57 U/L (38-126) 12/02/24 21:48
Total Protein 7.1 g/dl (6.3-8.2) 12/02/24 21:48
Albumin 4.5 g/dl (3.5-5.0) 12/02/24 21:48
�
Diagnostic Results:�as per HPI�
�
Assessment
68-year-old F PMH (hypertension, hypercholesterolemia, depression, overactive bladder, seizure, CVA right MCA 2018) presented to [facility] on 12/02/2024 after a fall transferring from the chair to the commode falling forward and hitting her
forehead. CT of the head with no evidence of acute intracranial hemorrhage. Large 10 cm region of encephalomalacia in the right MCA territory which appears unchanged and consistent with large chronic infarction. Previous right-sided craniectomy
and cranioplasty which appears unchanged. Left lower extremity Doppler with no evidence for DVT. Left foot and ankle x-ray with no evidence of acute fracture in the left foot or ankle. MRI of the brain 12/01/2024 with no acute intracranial
abnormality. Chest x-ray 12/05 with no acute radiographic abnormality in the chest.
�
Plan�
PM&R�PT/OT to increase independence with ADLs, improve balance, coordination, endurance, strength, mobility, community reintegration, decreased burden of care on others and family education.�
�
Fall:�Unclear etiology, started Wegovy recently, possible side effect of medication with potential fatigue causing her have more difficulty with her transfers recently
-Will benefit from PT and OT to help improve her strength and balance. Wegovy could help with weight loss which will allow her to function better but may also have the side effects. To consider holding Wegovy for now and seeing how her improvement
progresses in therapy.
- No new stroke. Noted to have some more difficulty with transfers recently. Currently requires two-person assistance and will benefit from acute versus skilled per therapy.
Left foot pain: X-ray negative for fracture, acetaminophen as needed.� Currently getting celecoxib and oxycodone. Would consider holding. Can trial lidocaine patch
History of right MCA CVA: Secondary prophylaxis with Plavix and statin, and blood pressure control.
-Gabapentin 300 mg at night
Spastic left nondominant hemiparesis: High risk for falls and sliding out of chair/bed. Safety reinforced.�
- Avoid using affected arm to help lift or pull patient as this will cause trauma to the shoulder.
-Baclofen 10 mg 3 times daily, may benefit from increasing dose to 15 mg
- Will benefit from outpatient Sprint trial as discussed with patient and daughter
Left inattention: makes patient at increased risk for falls.� Will need therapy to work on scanning of environment for safe navigation.�
Seizures: Continue Keppra monitor seizures, seizure precautions�
HTN: Lisinopril 10 mg daily, nifedipine 60 mg at cook night closely�
HLD: Statin�
Psych: Psychology consult.� Monitor mood, on Lexapro.�
Skin: monitor for pressure sores/rashes/lesions.�
Bowel: Colace and Senna, PRN bisacodyl.�
Bladder: Time void, PVRs, PRN straight cath.� Myrbetriq and methenamine
GI Prophylaxis: Pantoprazole�
DVT Prophylaxis: Mechanical and enoxaparin
Pulmonary: Incentive spirometry�
Obesity: Continue to alcoholic counselor patient about diet adjustments to control obesity. Body habitus and increased force to move body and extremities causes further difficulty with functional tasks.�
Safety: Continue to reinforce assistance with all transfers.�
Code Status:� Full code
Dispo�(date/plan/equipment needs): Home with family care.� Social history reviewed.�
�
Functional and Medical Goals:�Modified Independent with ADL�s, ambulation, transfers�
Discharge Destination:�Acute inpatient rehabilitation as patient is requiring 2 person assist. Will also benefit from adjustment in baclofen, likely will benefit from Sprint trial for the left poststroke shoulder pain. Unclear etiology of the
fall, may be related to Wegovy, hold for now.
A total of 60 minutes were spent with the patient preparing for the evaluation, obtaining history, performing examination and evaluation, counseling, data review, case management, care coordination, order picker/assembler, and EMR documentation.
�
Thank you for allowing me to care for your patient. Please contact me with any questions or concerns.
Consultation
-
Date/Time Consultation Performed: 12/06/24
Requesting Provider: Dr. Aguila Shelley
Performing Provider: Dr. Luis Clifford
Reason for Consultation: Stroke concern
--- NOTE | 2024-12-06 13:55 | CM ---
Chart reviewed and patient would benefit from PM&R evaluation and recommendations, construction area manager sent a referral to [facility] and they are asking for Updated notes and PM&R evaluations, patient may also be agreeable to [facility],
spoke with patient and daughter Vanda.
Plan; Rehab placement.
--- NOTE | 2024-12-06 14:20 | W.PN.HOSP.TC ---
Today's Communication/Plan
-
Await PMR eval
Rehab placement
Medically stable to go
Assessment / Plan
Assessment / Plan
68-year-old female with a fall. Patient lives at home alone with a caregiver 5 hours a day she is able to transfer herself to and from the wheelchair normally.
Head CT-no evidence of acute intracranial hemorrhage. Large 10 cm region of encephalomalacia in the right MCA territory which appears unchanged consistent with a large chronic infarction. Previous right-sided craniotomy and cranioplasty appears
unchanged.
Left lower extremity venous Doppler-no DVT
Left foot/ankle x-ray no left foot or ankle fracture. Diffuse bone demineralization. Moderate diffuse soft tissue swelling and subcutaneous edema
X-ray of the pelvis 12/02/2024-cortical margins of the osseous pelvic ring appears intact without interruption of fracture. Symphysis is congruent. SI and hip joints unremarkable. Sacrum is obscured by bowel gas and fecal residue. Neurostimulator
device noted.
Femur x-ray 12/02/2024-no fracture
MRI of the brain-no acute intracranial abnormality. Stable postoperative changes in the right sided craniotomy/cranioplasty with underlying encephalomalacia. Small focus of diffusion hyperintense signal within the right parietal lobe underlying
the metallic hardware which is likely artifactual in nature.
CVS: S1-S2 normal
Chest: CTA B/L
Abdomen: Soft, NT / Bowel sounds present
Extremities: No edema, normal pulses
CITY BAILIFF: left sided weakness, foot drop- chronic
# Fall
mechanical
Ambulatory dysfunction normally able to do ADLs on her own
Sees outpatient PT once in 3 weeks
Started on Wegovy 3 weeks ago-does loss in muscle mass have to do anything with this.
MRI neg for acute
PT OT recommending acute rehab
PMR Consulted
# History of prior CVA-large ischemic stroke 2017
Continue baclofen, Celebrex, Plavix, Gabapentin for symptom management resulting from this
# Constipation improving after suppository
# Urinary retention status post right cath 12/01/2024. Now recovering after constipation treated.
# Hypertension-continue Lisinopril/Nifedipine
# Hyperlipidemia-continue Statin
# Depression-continue Lexapro
# History of seizures likely secondary to previous CVA-continue Keppra
# DVT prophylaxis-Lovenox
# Full code
D/W RN
D/W Case management
D/W Daughter and updated yesterday
Part of this note was created using voice recognition system. Occasional wrong word or��sound alike� substitutions may have inadvertently occurred due to the inherent limitations of voice recognition software. If noted kindly bring it to my
attention for correction.
Anticipated Discharge: Within 24 hours
Subjective/Interval History
-
Date of Service: December 06, 2024
Objective Data
-
Vital Signs:
Vital Signs
Temp Pulse Resp BP Pulse Ox
98.1 F 85 16 141/88 98
12/06/24 11:26 12/06/24 11:26 12/06/24 11:26 12/06/24 11:26 12/06/24 11:26
I&O
12/05/24 12/06/24 12/07/24
06:59 06:59 06:59
Intake Total 900 / 900 1130 / 1130
Balance 900 / 900 1130 / 1130
[2024-12-06 15:40] VITALS: BP 129/58
[2024-12-06] MEDS: CLARITIN 10 MG PO (17:00)
[2024-12-06] MEDS: LIPITOR 80 MG PO (17:00)
[2024-12-06] MEDS: LOVENOX 40 MG SC (17:00)
[2024-12-06] MEDS: MELATONIN 3 MG PO (22:24)
[2024-12-06] MEDS: NEURONTIN 300 MG PO (22:24)
[2024-12-06] MEDS: MYRBETRIQ EXTENDED RELEASE 50 MG PO (22:24)
[2024-12-06] MEDS: PROCARDIA XL (EXTENDED RELEASE) 60 MG PO (22:25)
[2024-12-07 07:20] VITALS: BP 137/59
[2024-12-07] MEDS: KEPPRA 500 MG PO (08:10)
[2024-12-07] MEDS: VISBIOME 1 CAP PO (08:10)
[2024-12-07] MEDS: LIORESAL 10 MG PO (08:10)
[2024-12-07] MEDS: TYLENOL 500 MG PO (08:10)
[2024-12-07] MEDS: BENTYL 10 MG PO (08:10)
[2024-12-07] MEDS: HIPREX 1 GRAM PO (08:10)
[2024-12-07] MEDS: ZESTRIL 10 MG PO (08:10)
[2024-12-07] MEDS: PLAVIX 75 MG PO (08:10)
[2024-12-07] MEDS: LEXAPRO 20 MG PO (08:10)
[2024-12-07] MEDS: MIRALAX PO (08:11)
[2024-12-07] MEDS: CELEBREX 100 MG PO (08:11)
--- NOTE | 2024-12-07 08:40 | CM ---
Addendum entered by Radha Sesay 12/07/24 12:24:
Patient has been approved and accepted at [facility] today, physician patient, nursing and family are aware.
[facility]
Report [id number]
Original Note:
Chart reviewed and updated notes sent to Deanna at [facility], waiting on a determination.
Plan; To follow up with [facility] admissions.
[2024-12-07] MEDS: OSCAL CAL 500 500 MG PO (11:22)
[2024-12-07] MEDS: VITAMIN D3 (cholecalciferol) 25 MCG PO (11:22)
--- NOTE | 2024-12-07 14:10 | W.PN.HOSP.TC ---
Today's Communication/Plan
-
Discharge to rehab
Assessment / Plan
Assessment / Plan
68-year-old female with a fall. Patient lives at home alone with a caregiver 5 hours a day she is able to transfer herself to and from the wheelchair normally.
Head CT-no evidence of acute intracranial hemorrhage. Large 10 cm region of encephalomalacia in the right MCA territory which appears unchanged consistent with a large chronic infarction. Previous right-sided craniotomy and cranioplasty appears
unchanged.
Left lower extremity venous Doppler-no DVT
Left foot/ankle x-ray no left foot or ankle fracture. Diffuse bone demineralization. Moderate diffuse soft tissue swelling and subcutaneous edema
X-ray of the pelvis 12/02/2024-cortical margins of the osseous pelvic ring appears intact without interruption of fracture. Symphysis is congruent. SI and hip joints unremarkable. Sacrum is obscured by bowel gas and fecal residue. Neurostimulator
device noted.
Femur x-ray 12/02/2024-no fracture
MRI of the brain-no acute intracranial abnormality. Stable postoperative changes in the right sided craniotomy/cranioplasty with underlying encephalomalacia. Small focus of diffusion hyperintense signal within the right parietal lobe underlying
the metallic hardware which is likely artifactual in nature.
CVS: S1-S2 normal
Chest: CTA B/L
Abdomen: Soft, NT / Bowel sounds present
Extremities: No edema, normal pulses
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
# Fall
mechanical
Ambulatory dysfunction normally able to do ADLs on her own
Sees outpatient PT once in 3 weeks
Started on Wegovy 3 weeks ago-does loss in muscle mass have to do anything with this.
MRI neg for acute
PT OT recommending acute rehab
PMR Consulted and recommended rehab
# History of prior CVA-large ischemic stroke 2018
Continue baclofen, Celebrex, Plavix, Gabapentin for symptom management resulting from this
# Constipation improved
# Urinary retention status post right cath 12/01/2024. Now recovering after constipation treated.
# Hypertension-Continue Lisinopril/Nifedipine
# Hyperlipidemia-Continue Statin
# Depression-Continue Lexapro
# History of seizures likely secondary to previous CVA-Continue Keppra
# DVT prophylaxis-Lovenox
# Full code
D/W RN
D/W Case management
D/W Daughter
Part of this note was created using voice recognition system. Occasional wrong word or��sound alike� substitutions may have inadvertently occurred due to the inherent limitations of voice recognition software. If noted kindly bring it to my
attention for correction.
More than 30 minutes spent in discharge including
Final examination of the patient
Summarizing hospital stay
Instructions for continuing care to all relevant caregivers
Preparation of discharge records, prescriptions, and referral forms
Total time spent (in minutes): 33 min
Anticipated Discharge: Today
Subjective/Interval History
-
Date of Service: December 07, 2024
Objective Data
-
Vital Signs:
Vital Signs
Temp Pulse Resp BP Pulse Ox
98.3 F 85 15 137/59 96
12/07/24 07:20 12/07/24 07:20 12/07/24 07:20 12/07/24 07:20 12/07/24 07:20
I&O
12/06/24 12/07/24 12/08/24
06:59 06:59 06:59
Intake Total 1130 / 1130 800 / 800
Balance 1130 / 1130 800 / 800
--- NOTE | 2024-12-07 14:22 | W.DS.TRANS ---
Addendum entered and electronically signed by Aguila Shelley MD 12/07/24 15:01:
DictATION- [id number]
Original Note:
DC Summary - Crib Clerk
-
Discharge Instructions:
Discharge Diagnosis/Procedures Mechanical fall
Prior CVA
Constipation
Urinary retention
Hypertension
Hyperlipidemia
Depression
History of seizures
Diet As tolerated
Activity As tolerated,With assistance
Driving Restrictions No driving
Other Services PT,OT
Instructions:
Stand-Alone Forms:
Changes to Home Medications: Yes
Discharge Medications:
DC Medications w/original date entered in [facility]
acetaminophen 500 mg tablet (Tylenol Extra Strength) 500 mg PO TID Pain 04/10/18
levetiracetam 500 mg tablet 500 mg PO BID Neurological Condition 04/10/18
atorvastatin 80 mg tablet 80 mg PO QPM High Cholesterol 02/22/19
baclofen 10 mg tablet 10 mg PO TID Muscle Spasms 02/22/19
calcium carbonate (Calcium 600) 600 mg PO BID@1200,1900 Supplement ##0 02/22/19
celecoxib 100 mg capsule 100 mg PO BID Anti-Inflammatory 02/22/19
cholecalciferol (vitamin D3) 25 mcg (1,000 unit) tablet 2,000 units PO NOON Supplement 02/22/19
dicyclomine 10 mg capsule 10 mg PO DAILY Gastrointestinal Issue 02/22/19
escitalopram oxalate 20 mg tablet 20 mg PO DAILY Cough 02/22/19
loratadine 10 mg tablet 10 mg PO QPM Allergies 02/22/19
melatonin 3 mg tablet 3 mg PO HS Sleep 02/22/19
Lactobac no.2-Bifidobac no.1-S. thermo 112.5 billion cell capsule (Visbiome) 1 cap PO DAILY Supplement 12/15/23
clopidogrel 75 mg tablet (Plavix) 75 mg PO DAILY Blood Clot Prevention/Tx 12/15/23
cranberry extract 200 mg capsule (Ellura) 200 mg PO QPM Supplement 12/15/23
estradiol 0.01% (0.1 mg/gram) vaginal cream (Estrace) 1 appful vaginal MOTH Hormonal Agent 12/15/23
fluticasone propionate 50 mcg/actuation nasal spray,suspension 2 spray intranasal NOON Allergies 12/15/23
gabapentin 300 mg capsule 300 mg PO HS Neurological Condition 12/15/23
lisinopril 10 mg tablet 10 mg PO DAILY Blood Pressure 12/15/23
mirabegron 50 mg tablet,extended release 24 hr (Myrbetriq) 50 mg PO HS Urinary Issue 12/15/23
nifedipine 30 mg tablet,extended release 60 mg PO HS Blood Pressure 12/15/23
methenamine hippurate 1 gram tablet 1 g PO BID Urinary Issue 12/02/24
famotidine 20 mg tablet (Acid Controller) 20 mg PO BID Gastrointestinal issue #60 tabs 12/07/24
polyethylene glycol 3350 17 gram oral powder packet 17 g PO DAILY Constipation #0 ea 12/07/24
Home Medication Changes
new
Miralax Pepcid
Pending Results: No
--- NOTE | 2024-12-07 14:38 | W.PN.UPDATE ---
Addendum entered and electronically signed by Aguila Shelley MD 12/07/24 14:41:
Correction- This is note os not meant for this patient.
Original Note:
Update Note
Progress Note Update
Pt refused enema , states she has regular BMS.
Added PO bowel regimen
[2024-12-07 15:05] VITALS: BP 107/49
--- NOTE | 2024-12-07 15:30 | PTCARENOTE ---
Report given to Lucina at [facility]. Patient left with her own wheelchair, cane, and left leg brace.
== END 2024-12-07 15:41 ==
LOC: 4 WEST ACU 00:11
PROVIDERS: Emergency Medicine; Internal Medicine; Nurse Practitioner Family; ADMITTING PHYSICIAN Internal Medicine; ATTENDING PHYSICIAN Hospitalist; CONSULT PHYSICIAN Physical Medicine & Rehabilitation; EMERGENCY PHYSICIAN Emergency Medicine
DX: I69.354 Hemiplegia and hemiparesis following cerebral infarction affecting left non-dominant side (principal); M79.89 Other specified soft tissue disorders; Z87.891 Personal history of nicotine dependence; Z60.2 Problems related to living alone; Z79.899 Other long term (current) drug therapy; M81.0 Age-related osteoporosis without current pathological fracture; I10 Essential (primary) hypertension; E78.00 Pure hypercholesterolemia, unspecified; F32.A Depression, unspecified; N32.81 Overactive bladder; K59.00 Constipation, unspecified; R33.9 Retention of urine, unspecified; W18.11XA Fall from or off toilet without subsequent striking against object, initial encounter
CPT/HCPCS: 70450; 70551; 71046; 72170; 73552; 73610; 73630; 80048; 80053; 80061; 81003; 81015; 83036; 84484; 85025; 85610; 85652; 85730; 86850; 86900; 86901; 87086; 92523; 92610; 93971; 97163; 97167; 97530; 97535; 99285; G0378

== ENCOUNTER 2025-01-08 07:22 | Outpatient (RCR) | payer MEDICARE, OTHER, SELFPAY | END 2025-01-08 23:59 | disposition home or self-care (01) | LOC: RPT 07:22 | PROVIDERS: FAMILY PHYSICIAN Nurse Practitioner | DX: I69.354 Hemiplegia and hemiparesis following cerebral infarction affecting left non-dominant side (principal); Z73.6 Limitation of activities due to disability; Z91.81 History of falling | CPT/HCPCS: 97163; 97530 ==

== ENCOUNTER 2025-02-08 12:50 | Outpatient (RCR) | payer MEDICARE, OTHER, SELFPAY | END 2025-02-08 23:59 | disposition home or self-care (01) | LOC: RPT 12:50 | PROVIDERS: FAMILY PHYSICIAN Nurse Practitioner | DX: I69.354 Hemiplegia and hemiparesis following cerebral infarction affecting left non-dominant side (principal); Z73.6 Limitation of activities due to disability; Z91.81 History of falling | CPT/HCPCS: 97110; 97112; 97116; 97530 ==

== ENCOUNTER 2025-03-07 11:56 | Outpatient (RCR) | payer MEDICARE, OTHER, SELFPAY | END 2025-03-07 23:59 | disposition home or self-care (01) | LOC: RPT 11:56 | PROVIDERS: FAMILY PHYSICIAN Nurse Practitioner | DX: I69.354 Hemiplegia and hemiparesis following cerebral infarction affecting left non-dominant side (principal); Z73.6 Limitation of activities due to disability; Z91.81 History of falling | CPT/HCPCS: 97110; 97112; 97116; 97530 ==

== ENCOUNTER 2025-04-12 11:10 | Outpatient (RCR) | payer MEDICARE, OTHER, SELFPAY | END 2025-04-12 23:59 | disposition home or self-care (01) | LOC: RPT 11:10 | PROVIDERS: FAMILY PHYSICIAN Nurse Practitioner | DX: I69.354 Hemiplegia and hemiparesis following cerebral infarction affecting left non-dominant side (principal); Z73.6 Limitation of activities due to disability; Z91.81 History of falling | CPT/HCPCS: 97110; 97112; 97116 ==

== ENCOUNTER 2025-05-09 07:13 | Outpatient (RCR) | payer MEDICARE, OTHER, SELFPAY | END 2025-05-09 23:59 | disposition home or self-care (01) | LOC: RPT 07:13 | PROVIDERS: FAMILY PHYSICIAN Nurse Practitioner | DX: I69.354 Hemiplegia and hemiparesis following cerebral infarction affecting left non-dominant side (principal); Z73.6 Limitation of activities due to disability; Z91.81 History of falling | CPT/HCPCS: 97110; 97112; 97116 ==

== ENCOUNTER 2025-06-05 09:37 | Outpatient (RCR) | payer MEDICARE, OTHER, SELFPAY | END 2025-06-05 23:59 | disposition home or self-care (01) | LOC: RPT 09:37 | PROVIDERS: FAMILY PHYSICIAN Nurse Practitioner | DX: I69.354 Hemiplegia and hemiparesis following cerebral infarction affecting left non-dominant side (principal); Z73.6 Limitation of activities due to disability; Z91.81 History of falling | CPT/HCPCS: 97110; 97112; 97116 ==